=== PATIENT | female | born 1945 | race Caucasian/White ===

== ENCOUNTER 2017-11-18 10:56 | Observation (INO) | payer OTHER ==
[2017-11-18] MEDS ORDERED: IPRATROPIUM BROM 0.5MG/2.5ML ONE (11:18)
[2017-11-18] MEDS ORDERED: ALBUTEROL 2.5 MG/3 ML NEB SOL ONE (11:18)
[2017-11-18 11:48] LABS: Absolute Lymphocytes (CBC) 1.1 K/uL (0.7-4.9); Absolute Monocytes 0.5 K/uL (0.1-1.3); Absolute Neutrophil 6.2 K/uL (1.8-8.0); Basophils % 0.4 % (0-1.3); Eosinophils % 0.9 % (0-4.4); Hematocrit 40.5 % (36.0-45.0); Lymphocytes % 14.2 % (15.3-44.8); MCH 28.6 pg (27.0-35.0); MCV 86.6 fL (80-100); MPV 8.9 fL (7.6-11.3); Monocytes % 6.2 % (3.3-12.3); Protime INR 1.15; RBC Red Blood Cell Count 4.68 M/uL (3.86-4.86)
[2017-11-18 11:56] LABS: Potassium 3.5 mEq/L (3.6-5.0)
[2017-11-18 12:02] LABS: Albumin 3.9 g/dL (3.2-5.5); Bilirubin Direct 0.1 mg/dL (0-0.2); Bilirubin Total 0.3 mg/dL (0.3-1.2); Protein, Total 7.4 g/dL (6.0-8.3)
[2017-11-18 12:04] LABS: CKMB Creatine Kinase MB 2.6 ng/ml (0.3-4.0)
--- NOTE | 2017-11-18 12:06 | RAD REPORT ---
EXAM DESCRIPTION: RAD - Chest Single View - 11/18/2017 11:50 am CLINICAL HISTORY: Chest pain, shortness of breath COMPARISON: 07/21/2017 FINDINGS: Portable technique limits examination quality. The lungs are grossly clear. The heart is mildly prominent size. No displaced fractures. IMPRESSION: No acute intrathoracic process suspected.
[2017-11-18] MEDS ORDERED: METHYLPREDNISOLONE 125 MG INJ ONE (12:18)
[2017-11-18] MEDS ORDERED: MAGNESIUM SULFATE 1 gm IVPB 1 GM/100 ML BAG IV ONE (12:18)
--- NOTE | 2017-11-18 12:55 | EKG ---
Test Date: 2017-11-18 Test Time: 12:02:13 Dynamite Cartridge Crimper: DAIJA MEASUREMENT RESULTS: Intervals: Rate: 52 MI: 198 QRSD: 96 QT: 508 QTc: 472 [place]: P: 81 MI: 198 QRS: 49 T: 114 INTERPRETIVE STATEMENTS: Sinus bradycardia Nonspecific ST and T wave abnormality Prolonged QT Abnormal ECG Compared to ECG 01/07/2017 06:58:58 Prolonged QT interval now present Atrial fibrillation no longer present Ventricular premature complex(es) no longer present Possible ischemia no longer present ST (T wave) deviation still present Electronically Signed On 11-18-17 12:54:29 CDT by Adam Bourgeois
--- NOTE | 2017-11-18 14:27 | EDPHYS ---
Physician Documentation [facility] Name: Malina Hernandez Age: 72 yrs Sex: Female : 1945 Arrival Date: 11/18/2017 Time: 10:56 Bed 23 Private MD: ED Physician Dwayne Gifford HPI: 11/18 11:25 This 72 yrs old Female presents to ER via Ambulatory with complaints of cp Shortness Of Breath. 11:25 The patient has shortness of breath with light activity. Onset: The symptoms/episode cp began/occurred 1 week(s) ago. Duration: The symptoms are continuous, and are steadily getting worse. Historical: - Allergies: 11:00 No Known Allergies; hb - Home Meds: 11:00 amiodarone 200 mg Oral tab 1 tab once daily [Active]; amlodipine 2.5 mg tab 1 tab once hb daily [Active]; carvedilol 12.5 mg Oral tab 1 tab 2 times per day [Active]; Eliquis 2.5 mg Oral tab 1 tab 2 times per day [Active]; furosemide 40 mg Oral tab 1 tab once daily [Active]; levothyroxine 25 mcg tab 1 tab once daily [Active]; valsartan 160 mg Oral tab 1 tab 2 times per day [Active]; - PMHx: 11:00 Atrial Fib; Hypertension; hb - Immunization history:: Adult Immunizations up to date. - Social history:: Smoking status: Patient/guardian denies using tobacco. ROS: 11:30 Constitutional: Negative for body aches, chills, fever, poor PO intake. cp 11:30 Eyes: Negative for injury, pain, redness, and discharge. cp 11:30 ENT: Negative for drainage from ear(s), ear pain, sore throat, difficulty swallowing, difficulty handling secretions. 11:30 Cardiovascular: Positive for edema, Negative for chest pain, palpitations. 11:30 Respiratory: Positive for cough, dyspnea on exertion, shortness of breath, at rest. 11:30 Abdomen/GI: Negative for abdominal pain, nausea, vomiting, and diarrhea, constipation, black/tarry stool, rectal bleeding. 11:30 Back: Negative for pain at rest, pain with movement, radiated pain. 11:30 : Negative for urinary symptoms. 11:30 Skin: Negative for cellulitis, rash. 11:30 Neuro: Negative for altered mental status, headache, syncope, near syncope, weakness. 11:30 All other systems are negative. Exam: 11:37 Constitutional: The patient appears in no acute distress, alert, awake, cp non-diaphoretic, non-toxic, well developed, well nourished. 11:37 Head/Face: Normocephalic, atraumatic. Eyes: Pupils equal round and reactive to light, cp extra-ocular motions intact. Lids and lashes normal. Conjunctiva and sclera are non-icteric and not injected. Cornea within normal limits. Periorbital areas with no swelling, redness, or edema. ENT: Nares patent. No nasal discharge, no septal abnormalities noted. Tympanic membranes are normal and external auditory canals are clear. Oropharynx with no redness, swelling, or masses, exudates, or evidence of obstruction, uvula midline. Mucous membranes moist. Neck: Trachea midline, no thyromegaly or masses palpated, and no cervical lymphadenopathy. Supple, full range of motion without nuchal rigidity, or vertebral point tenderness. No Meningismus. Chest/axilla: Normal chest wall appearance and motion. Nontender with no deformity. No lesions are appreciated. 11:37 Cardiovascular: Rate: normal, Rhythm: regular, Pulses: Pulses are 2+ in right radial artery and left radial artery. Edema: pedal edema, that is moderate, JVD: is not appreciated. 11:37 Respiratory: the patient does not display signs of respiratory distress, Respirations: labored breathing, that is mild, intercostal retractions, are absent, shallow respirations, that is mild, splinting, is not noted, Breath sounds: bronchial sounds, are not appreciated, decreased breath sounds, that are moderate, throughout, stridor, is not appreciated, wheezing: that is mild, is heard diffusely. 11:37 Abdomen/GI: Inspection: abdomen appears normal, Bowel sounds: active, all quadrants, Palpation: abdomen is soft and non-tender, in all quadrants, rebound tenderness, is not appreciated, voluntary guarding, is not appreciated, involuntary guarding, is not appreciated. 11:37 Back: pain, is absent, ROM is normal. 11:37 Skin: cellulitis, is not appreciated, no rash present. 11:37 Neuro: Orientation: to person, place \T\ time. Mentation: lucid, able to follow commands, Cerebellar function: is grossly normal, Motor: moves all fours, strength is normal, Sensation: no obvious gross deficits, Gait: is steady. 12:08 ECG was reviewed by the Attending Physician. Vital Signs: 10:59 BP 148 / 88; Pulse 64; Resp 22; Temp 97.9; Pulse Ox 96% on R/A; Weight 95.25 kg; Height hb 5 ft. 4 in. (162.56 cm); Pain 0/10; 12:12 BP 180 / 86; Pulse 51; Resp 22; Pulse Ox 100% on R/A; aj1 13:43 BP 186 / 99; Pulse 51; Resp 18; Pulse Ox 95% on R/A; aj1 14:56 BP 150 / 81; Pulse 62; Resp 18; Pulse Ox 96% on R/A; aj1 16:45 BP 162 / 87; Pulse 53; Resp 18; Pulse Ox 97% on R/A; aj1 10:59 Body Mass Index 36.05 (95.25 kg, 162.56 cm) hb MDM: 11:06 Patient medically screened. 14:00 Data reviewed: vital signs, nurses notes, lab test result(s), EKG, radiologic studies, cp plain films. 14:00 Test interpretation: by ED physician or midlevel provider: ECG, plain radiologic cp studies. 14:02 Physician consultation: Kathrine Serrato MD was called at 14:02, was contacted at 14:02, regarding admission, to the telemetry unit. patient's condition. 11/18 11:22 Order name: Basic Metabolic Panel; Complete Time: 12:07 11/18 12:07 Interpretation: Normal except: K 3.5; BUN 22; GFR 80. 11/18 11:22 Order name: BNP; Complete Time: 12:07 11/18 12:08 Interpretation: Abnormal: BNP 326. 11/18 11:22 Order name: CBC with Diff; Complete Time: 11:55 11/18 11:55 Interpretation: Normal except: RDW 15.3; OZZIE% 78.3; LYM% 14.2. 11/18 11:22 Order name: Ckmb; Complete Time: 12:07 11/18 11:22 Order name: CPK; Complete Time: 12:07 11/18 11:22 Order name: LFT's; Complete Time: 12:07 cp 11/18 11:22 Order name: Magnesium; Complete Time: 12:07 cp 11/18 11:22 Order name: PT-INR; Complete Time: 11:55 cp 11/18 12:45 Interpretation: Normal except: PT 13.6. cp 11/18 11:22 Order name: Ptt, Activated; Complete Time: 11:55 cp 11/18 11:22 Order name: Troponin (emerg Dept Use Only); Complete Time: 12:07 cp 11/18 14:53 Order name: Urine Dipstick--Ancillary (enter results) bd 11/18 15:10 Order name: Lipid Profile [facility] 11/18 15:10 Order name: Lipid Profile [facility] 11/18 15:10 Order name: Troponin I [facility] 11/18 11:22 Order name: XRAY Chest (1 view); Complete Time: 12:07 cp 11/18 11:22 Order name: EKG; Complete Time: 11:22 cp 11/18 11:22 Order name: Cardiac monitoring; Complete Time: 11:35 cp 11/18 11:22 Order name: EKG - Nurse/Tech; Complete Time: 12:02 cp 11/18 11:22 Order name: IV Saline Lock; Complete Time: 11:35 cp 11/18 11:22 Order name: Labs collected and sent; Complete Time: 11:36 cp 11/18 15:10 Order name: Respiratory Therapy Consult [facility] 11/18 15:10 Order name: Troponin I [facility] 11/18 15:10 Order name: Troponin I [facility] 11/18 15:11 Order name: Regular [facility] 11/18 11:22 Order name: O2 Per Protocol; Complete Time: 11:36 cp 11/18 11:22 Order name: O2 Sat Monitoring; Complete Time: 11:36 cp 11/18 11:22 Order name: Urine Dipstick-Ancillary (obtain specimen); Complete Time: 14:50 cp EC:08 Rate is 52 beats/min. Rhythm is regular. MD interval is normal. QRS interval is normal. cp QT interval is prolonged at 508 msec. Interpreted by me. Reviewed by me. Administered Medications: 11:25 Drug: Albuterol - atroVENT (3:1) (2.5 mg - 0.5 mg) 3 ml Route: Nebulizer; aj1 12:31 Follow up: Response: No adverse reaction aj 12:31 Drug: SOLU-Medrol 125 mg Route: IVP; Site: left antecubital; aj1 14:55 Follow up: Response: No adverse reaction 12:31 Drug: Magnesium Sulfate 1 grams Route: IVPB; Infused Over: 1 hrs; Site: left aj1 antecubital; 14:55 Follow up: IV Status: Completed infusion; IV Intake: 100ml 14:55 Drug: Aspirin 81 mg Route: PO; aj1 16:46 Follow up: Response: No adverse reaction 14:55 Drug: Potassium Effervescent Tablet 25 mEq Route: PO; aj1 16:48 Follow up: Response: No adverse reaction aj 16:48 Not Given (Hemodynamic Parameters): hydrALAZINE 5 mg IV at calculated rate once aj1 Disposition: 11/18/17 14:27 Hospitalization ordered by Kathrine Serrato for Observation. Preliminary diagnosis is Dyspnea, unspecified. - Bed requested for Telemetry/MedSurg (observation). - Status is Observation. aj1 - Condition is Stable. - Problem is new. - Symptoms have improved. UTI on Admission? No Addendum: 12/03/2017 19:46 Co-signature as Attending Physician, Dwayne Gifford MD I agree with the assessment and k plan of care. Signatures: Dispatcher [employer] EDMS Esly Ugarte Angela, WEN RN aj1 Dwayne Gifford MD MD [facility] James Newton PA PA cp Jamaica Lopez RN RN Corrections: (The following items were deleted from the chart) 11/18 15:29 14:27 Hospitalization Ordered by Kathrine Serrato MD for Observation. Preliminary bd diagnosis is Dyspnea, unspecified. Bed requested for Telemetry/MedSurg (observation). Status is Observation. Condition is Stable. Problem is new. Symptoms have improved. UTI on Admission? No. cp 16:49 15:29 11/18/2017 14:27 Hospitalization Ordered by Kathrine Serrato MD for Observation. aj1 Preliminary diagnosis is Dyspnea, unspecified. Bed requested for Telemetry/MedSurg (observation). Status is Observation. Condition is Stable. Problem is new. Symptoms have improved. UTI on Admission? No. bd
--- NOTE | 2017-11-18 14:27 | ER ---
Nurse's Notes [facility] Name: Malina Hernandez Age: 72 yrs Sex: Female : 1945 Arrival Date: 11/18/2017 Time: 10:56 Bed 23 Private MD: Diagnosis: Dyspnea, unspecified Presentation: 11/18 10:57 Presenting complaint: Patient states: Shortness of breath, chest tightness, and hb productive cough with white sputum x 1 week. Recently seen by Dr. Serrato for same s/s on prednisone and amoxicillin Day 4. Transition of care: patient was not received from another setting of care. Onset of symptoms is unknown. Initial Sepsis Screen: Does the patient meet any 2 criteria? No. Patient's initial sepsis screen is negative. Does the patient have a suspected source of infection? No. Patient's initial sepsis screen is negative. Care prior to arrival: None. 10:57 Method Of Arrival: Ambulatory hb 10:57 Acuity: CARMEN 3 hb Historical: - Allergies: 11:00 No Known Allergies; hb - Home Meds: 11:00 amiodarone 200 mg Oral tab 1 tab once daily [Active]; amlodipine 2.5 mg tab 1 tab once hb daily [Active]; carvedilol 12.5 mg Oral tab 1 tab 2 times per day [Active]; Eliquis 2.5 mg Oral tab 1 tab 2 times per day [Active]; furosemide 40 mg Oral tab 1 tab once daily [Active]; levothyroxine 25 mcg tab 1 tab once daily [Active]; valsartan 160 mg Oral tab 1 tab 2 times per day [Active]; - PMHx: 11:00 Atrial Fib; Hypertension; hb - Immunization history:: Adult Immunizations up to date. - Social history:: Smoking status: Patient/guardian denies using tobacco. Screenin:00 Abuse screen: Denies threats or abuse. Denies injuries from another. Nutritional aj1 screening: No deficits noted. Tuberculosis screening: No symptoms or risk factors identified. 16:45 Fall Risk No fall in past 12 months (0 pts). No secondary diagnosis (0 pts). IV access aj1 (20 points). Ambulatory Aid- None/Bed Rest/Nurse Assist (0 pts). Gait- Normal/Bed Rest/Wheelchair (0 pts) Mental Status- Oriented to own ability (0 pts). Total Cabrales Fall Scale indicates No Risk (0-24 pts). Assessment: 11:00 General: Appears in no apparent distress. uncomfortable, Behavior is calm, cooperative, aj1 appropriate for age. Pain: Denies pain. Pain does not radiate. Pain began denies pain. Neuro: Level of Consciousness is awake, alert, obeys commands, Oriented to person, place, time, situation, Speech is normal, Facial symmetry appears normal. Cardiovascular: Reports shortness of breath, Denies chest pain, diaphoresis, Heart tones S1 S2 present Patient's skin is warm and dry. Edema is 3+ to left ankle, left foot, left toes, right ankle, right foot and right toes Rhythm is irregular Chest pain is denied. Respiratory: Reports shortness of breath at rest cough that is non-productive, hacking, persistent Airway is patent Respiratory effort is even, unlabored, Respiratory pattern is regular, symmetrical, Breath sounds with crackles bilaterally. Breath sounds with wheezes bilaterally. the patient has mild shortness of breath. GI: No signs and/or symptoms were reported involving the gastrointestinal system. : No signs and/or symptoms were reported regarding the genitourinary system. EENT: No signs and/or symptoms were reported regarding the EENT system. Derm: No signs and/or symptoms reported regarding the dermatologic system. Skin is pink, warm \T\ dry. normal. Musculoskeletal: No signs and/or symptoms reported regarding the musculoskeletal system. Circulation, motion, and sensation intact. 12:12 Reassessment: Patient appears in no apparent distress at this time. No changes from aj1 previously documented assessment. Patient and/or family updated on plan of care and expected duration. Pain level reassessed. Patient is alert, oriented x 3, equal unlabored respirations, skin warm/dry/pink. 13:43 Reassessment: Patient appears in no apparent distress at this time. No changes from aj1 previously documented assessment. Patient and/or family updated on plan of care and expected duration. Pain level reassessed. Patient is alert, oriented x 3, equal unlabored respirations, skin warm/dry/pink. 14:56 Reassessment: Patient appears in no apparent distress at this time. No changes from aj1 previously documented assessment. Patient and/or family updated on plan of care and expected duration. Pain level reassessed. Patient is alert, oriented x 3, equal unlabored respirations, skin warm/dry/pink. 15:00 Reassessment: Rechecked patients blood pressure now 157/73. Notified GIGI Anguiano of aj1 patient's current vital signs, order received to hold hydralazine and give if BP rises back to 180's/90's. 15:45 Reassessment: Patient and/or family updated on plan of care and expected duration. Pain aj1 level reassessed. General: Appears in no apparent distress. comfortable, Behavior is calm, cooperative, appropriate for age. Pain: Denies pain. Neuro: Level of Consciousness is awake, alert, obeys commands, Oriented to person, place, time, situation, Speech is normal, Facial symmetry appears normal. Cardiovascular: Heart tones S1 S2 present Patient's skin is warm and dry. Edema is 3+ to left ankle, left foot, left toes, right ankle, right foot and right toes Rhythm is sinus bradycardia. Respiratory: Airway is patent Respiratory effort is even, unlabored, Respiratory pattern is regular, symmetrical, Breath sounds with wheezes bilaterally. GI: No signs and/or symptoms were reported involving the gastrointestinal system. : No signs and/or symptoms were reported regarding the genitourinary system. EENT: No signs and/or symptoms were reported regarding the EENT system. Derm: No signs and/or symptoms reported regarding the dermatologic system. Skin is pink, warm \T\ dry. normal. Musculoskeletal: No signs and/or symptoms reported regarding the musculoskeletal system. Circulation, motion, and sensation intact. 16:43 Reassessment: Patient appears in no apparent distress at this time. No changes from aj1 previously documented assessment. Patient and/or family updated on plan of care and expected duration. Pain level reassessed. Patient is alert, oriented x 3, equal unlabored respirations, skin warm/dry/pink. Vital Signs: 10:59 BP 148 / 88; Pulse 64; Resp 22; Temp 97.9; Pulse Ox 96% on R/A; Weight 95.25 kg; Height hb 5 ft. 4 in. (162.56 cm); Pain 0/10; 12:12 BP 180 / 86; Pulse 51; Resp 22; Pulse Ox 100% on R/A; aj1 13:43 BP 186 / 99; Pulse 51; Resp 18; Pulse Ox 95% on R/A; aj1 14:56 BP 150 / 81; Pulse 62; Resp 18; Pulse Ox 96% on R/A; aj1 16:45 BP 162 / 87; Pulse 53; Resp 18; Pulse Ox 97% on R/A; aj1 10:59 Body Mass Index 36.05 (95.25 kg, 162.56 cm) hb ED Course: 10:56 Patient arrived in ED. sb2 10:59 Triage completed. hb 10:59 Arm band placed on right wrist. hb 11:00 Patient has correct armband on for positive identification. Placed in gown. Bed in low aj1 position. Call light in reach. Side rails up X 1. lunchroom monitor on. Pulse ox on. NIBP on. Door closed. Warm blanket given. 11:00 No provider procedures requiring assistance completed. Patient maintains SpO2 aj1 saturation greater than 95% on room air. 11:03 Kasia Dash RN is Primary Nurse. aj1 11:04 James Newton PA is PHCP. cp 11:05 Dwayne Gifford MD is Attending Physician. cp 11:30 Initial lab(s) drawn, by nv, sent to lab. Inserted saline lock: 20 gauge in left aj1 antecubital area, using aseptic technique. Blood collected. 11:46 X-ray completed. Portable x-ray completed in exam room. Patient tolerated procedure ml well. 11:49 XRAY Chest (1 view) In Process Unspecified. EDMS 12:06 EKG done, by ED staff, reviewed by Dwayne Gifford MD. jb1 14:25 Kathrine Serrato MD is Hospitalizing Provider. cp 14:49 Urine collected: clean catch specimen, clear, nancy colored. jb1 15:45 Report given to WEN Mars on 4th floor. aj1 16:45 Patient admitted, IV remains in place. aj1 Administered Medications: 11:25 Drug: Albuterol - atroVENT (3:1) (2.5 mg - 0.5 mg) 3 ml Route: Nebulizer; aj1 12:31 Follow up: Response: No adverse reaction aj1 12:31 Drug: SOLU-Medrol 125 mg Route: IVP; Site: left antecubital; aj1 14:55 Follow up: Response: No adverse reaction aj1 12:31 Drug: Magnesium Sulfate 1 grams Route: IVPB; Infused Over: 1 hrs; Site: left aj1 antecubital; 14:55 Follow up: IV Status: Completed infusion; IV Intake: 100ml aj1 14:55 Drug: Aspirin 81 mg Route: PO; aj1 16:46 Follow up: Response: No adverse reaction aj1 14:55 Drug: Potassium Effervescent Tablet 25 mEq Route: PO; aj1 16:48 Follow up: Response: No adverse reaction aj1 16:48 Not Given (Hemodynamic Parameters): hydrALAZINE 5 mg IV at calculated rate once aj1 Intake: 14:55 IV: 100ml; Total: 100ml. aj1 Outcome: 14:27 Decision to Hospitalize by Provider. cp 16:46 Admitted to Tele accompanied by tech, via wheelchair, with chart. aj1 16:46 Condition: stable 16:46 Discharge instructions given to patient, Instructed on the need for admit, Demonstrated understanding of instructions. 16:49 Patient left the ED. aj1 Signatures: Dispatcher [employer] EDRik Martines jb1 Kasia Dash RN RN aj1 Georgie Askew ml James Newton, GIGI PA cp Jamaica Lopez RN RN hb Keyla Edwards sb2 Corrections: (The following items were deleted from the chart) 11:04 10:57 Presenting complaint: Patient states: Shortness of breath, chest tightness, and hb nonproductive cough x 1 week. Recently seen by Dr. Serrato for same s/s on prednisone and amoxicillin Day 4 hb
[2017-11-18] MEDS ORDERED: ASPIRIN 81 MG CHEWABLE TABLET ONE (14:37)
[2017-11-18] MEDS ORDERED: HYDRALAZINE HCL 20 MG/ML VIAL ONE (14:37)
[2017-11-18] MEDS ORDERED: POTASSIUM 25 MEQ EFFERV TAB ONE (14:38)
[2017-11-18] MEDS ORDERED: ONDANSETRON 4 MG/2 ML VIAL IV PRN (15:05)
[2017-11-18 16:41] LABS: Urine Blood NEGATIVE (NEG); Urine Glucose NEGATIVE (NEG); Urine Protein 1+ (NEG); Urine pH 5.5 (5.0-7.0)
[2017-11-18] MEDS: ALBUTEROL 2.5 MG/3 ML NEB SOL NEB SCH ×2 (17:05→20:07)
[2017-11-18] MEDS: IPRATROPIUM BROM 0.5MG/2.5ML NEB SCH ×2 (17:05→20:07)
[2017-11-18] MEDS ORDERED: cloNIDine HCl 0.1 MG TAB PO ONE (17:55)
[2017-11-18] MEDS: METHYLPREDNISOLONE 40 MG INJ IV SCH ×2 (18:06→23:51)
[2017-11-18] MEDS ORDERED: PNEUMOCOCCAL VACCINE 0.5 ML IMVAC ONE (20:00)
[2017-11-18] MEDS: APIXABAN 2.5 MG TABLET PO SCH (21:00)
[2017-11-18] MEDS ORDERED: APIXABAN 2.5 MG TABLET PO SCH (21:00)
[2017-11-18] MEDS: VALSARTAN 160 MG TAB PO SCH (21:14)
[2017-11-18] MEDS: CARVEDILOL 6.25 MG TAB PO SCH (21:14)
[2017-11-19] MEDS: IPRATROPIUM BROM 0.5MG/2.5ML NEB SCH ×5 (00:14→16:25)
[2017-11-19] MEDS: ALBUTEROL 2.5 MG/3 ML NEB SOL NEB SCH ×5 (00:14→16:25)
[2017-11-19] MEDS: METHYLPREDNISOLONE 40 MG INJ IV SCH ×3 (05:54→18:00)
[2017-11-19] MEDS ORDERED: LEVOTHYROXINE SOD 0.025 MG TAB PO SCH (06:00)
[2017-11-19] MEDS: APIXABAN 2.5 MG TABLET PO SCH (08:23)
[2017-11-19] MEDS: VALSARTAN 160 MG TAB PO SCH (08:23)
[2017-11-19] MEDS: CARVEDILOL 6.25 MG TAB PO SCH (08:24)
[2017-11-19] MEDS ORDERED: AMLODIPINE 2.5 MG TAB PO SCH (09:00)
[2017-11-19] MEDS ORDERED: ASPIRIN EC 81 MG TAB PO SCH (09:00)
[2017-11-19] MEDS ORDERED: AMIODARONE HCL 200 MG TAB PO SCH (09:00)
[2017-11-19] MEDS ORDERED: FUROSEMIDE 40 MG TABLET PO SCH (09:00)
--- NOTE | 2017-11-20 00:20 | HP ---
Date of Admission: 11/18/2017 History Of Present Illness: A 72-year-old female with a history of paroxysmal atrial fibrillation, o n medications for that. Came to emergency room with a complaint that she was at home and she started feeling a little bit short of breath, fatigued. However, by the time she got to the emergency room. A feeling of shortness of breath and fatigue has resolved and because of the patient's history of a trial fibrillation and other medical problems, she was admitted for observation. Review of Systems: Cardiovascular: No chest pain. She did not feel palpitation. Respiratory: As above. Gastrointestinal: No complaint. Genitourinary: No complaint. Skeletomuscular: No complaint. Neurological: No complaint. Past Medical History: 1.As above, paroxysmal atrial fibrillation. 2.Hypertension. 3.The patient has had cholecystectomy. 4.The patient had history of noncompliance in the past with medications. Social History: The patient said she stopped smoking years ago. No alcohol or drug abuse history. Family History: Noncontributory. Medications: Include Cordarone 200 mg p.o. daily, amlodipine 2.5 mg p.o. daily, Eliquis 2.5 mg p.o. b.i.d., Coreg 12.5 mg p.o. b.i.d., Lasix 40 mg p.o. daily, levothyroxine 25 mcg p.o. daily, and valsa rtan 160 mg p.o. b.i.d. Allergies: NO KNOWN DRUG ALLERGIES. Physical Examination: Vital Signs: On presenting to the emergency room, her pulse oximetry on room air was more than 90%. Now, her blood pressure 147/85, pulse 54, temperature 97.8. Heart: Regular rate and rhythm. Chest: Clear to auscultation. Abdomen: Soft, nontender. No hepatosplenomegaly. Bowel sounds are normoactive. Extremities: No edema. No cyanosis. Peripheral pulses are felt. Neurological: Alert, oriented, nonfocal. Grossly intact. Diagnostic Studies: Chest x-ray, no acute pathology. EKG, sinus bradycardia, nonspecific ST-T wave abnormality, prolonged QT. Laboratory Data: CBC: Nonrevealing. Chemistry: Troponin less than 0.03. TSH 1.94. Rest of her c hemistry nonrevealing. Her BNP was 326. Urinalysis: Estrace and nitrite negative. Assessment And Plan: Complaint of shortness of breath and fatigue, resolved. It was for a short per iod of time. The patient felt that not even amounting to an hour. However, because of history of at rial fibrillation and she had been a previous smoker, she was admitted for observation. Also, her bl ood pressure was very high and was uncontrolled. We will go ahead and resume her home medicines, whi ch seem to have worked well. Her blood pressure is now better controlled and also we will order a ca rdiac echo. Meanwhile, the patient mentioned today she is ambulating well. I have asked her to ambu late as tolerated, and if her cardiac echo is unrevealing, and if she is feeling well, and remained s table, we will discharge in a.m. Look orders for details. CADEN/MATT Voice ID: [id number]
== END 2017-11-19 18:26 | disposition home or self-care (01) ==
LOC: ER 10:56 → ERHOLD 14:58 → 4TH 16:27
PROVIDERS: ADMIT Internal Medicine; ATTEND Internal Medicine
DX: R06.02 Shortness of breath (principal); R53.83 Other fatigue; I48.0 Paroxysmal atrial fibrillation; I10 Essential (primary) hypertension; Z87.891 Personal history of nicotine dependence
CPT/HCPCS: 36415; 71045; 80048; 80061; 80076; 81003; 82550; 82553; 83735; 83880; 84443; 84484 ×3; 85025; 85610; 85730; 93005; 94640 ×2; 96365; 96366; 96375; 99285; G0378 ×2; J0360; J2920 ×4; J2930; J3475

== ENCOUNTER 2018-06-12 06:45 | Emergency (ER) | payer OTHER ==
[2018-06-12] MEDS ORDERED: MORPHINE 4 MG/ML SYR ONE (07:41)
[2018-06-12] MEDS ORDERED: ONDANSETRON 4 MG/2 ML VIAL ONE (07:41)
[2018-06-12] MEDS ORDERED: FUROSEMIDE 40 MG TABLET ONE (07:56)
[2018-06-12] MEDS ORDERED: AMLODIPINE 5 MG TAB ONE (07:56)
--- NOTE | 2018-06-12 08:07 | RAD REPORT ---
EXAM DESCRIPTION: RAD - Chest Pa And Lat (2 Views) - 06/12/2018 7:43 am CLINICAL HISTORY: Left-sided back pain, rib pain COMPARISON: Portable chest October 2017, two view chest July 2017 TECHNIQUE: PA and lateral views of the chest were obtained. FINDINGS: The lungs are clear of an acute infiltrate, mass or failure finding. Mild prominence of th e lung markings in each medial base similar back to July 2017. Overall interstitial pattern not c learly different. Heart size is normal and central vasculature is within normal limits. No pleural effusion or pneumothorax seen. No acute bony finding noted. No aortic abnormality. IMPRESSION: No acute cardiopulmonary process. No significant change from comparison study.
[2018-06-12 08:13] LABS: Absolute Lymphocytes (CBC) 0.9 K/uL (0.7-4.9); Absolute Monocytes 0.4 K/uL (0.1-1.3); Absolute Neutrophil 5.7 K/uL (1.8-8.0); Basophils % 0.5 % (0-1.3); Eosinophils % 0.9 % (0-4.4); Hematocrit 42.2 % (36.0-45.0); Lymphocytes % 12.1 % (15.3-44.8); MCH 30.5 pg (27.0-35.0); MCV 87.4 fL (80-100); MPV 9.9 fL (7.6-11.3); Monocytes % 5.4 % (3.3-12.3); RBC Red Blood Cell Count 4.83 M/uL (3.86-4.86)
[2018-06-12 08:23] LABS: BUN Blood Urea Nitrogen 15 mg/dL (7-18); Bicarbonate 27 mmol/L (21-32); Glucose Level 120 mg/dL (74-106); Potassium 4.2 mmol/L (3.5-5.1); Sodium Level 141 mmol/L (136-145); Troponin (Emerg Dept Use Only) < 0.02 ng/mL (0.0-0.045)
--- NOTE | 2018-06-12 08:40 | EKG ---
Test Date: 2018-06-12 Test Time: 07:09:40 Vinyl Flooring Installer: ELGIN MEASUREMENT RESULTS: Intervals: Rate: 65 MI: 196 QRSD: 98 QT: 466 QTc: 484 [place]: P: 59 MI: 196 QRS: 62 T: 91 INTERPRETIVE STATEMENTS: Normal sinus rhythm Nonspecific ST and T wave abnormality Abnormal ECG Compared to ECG 11/18/2017 12:02:13 Sinus bradycardia no longer present Prolonged QT interval no longer present ST (T wave) deviation still present Electronically Signed On 06-12-18 08:39:25 MANAGER BABY by Adam Bourgeois
--- NOTE | 2018-06-12 08:44 | EDPHYS ---
Physician Documentation [facility] Name: Malina Hernandez Age: 72 yrs Sex: Female : 1945 Arrival Date: 06/12/2018 Time: 06:47 Bed 5 Private MD: Kathrine Serrato F ED Physician Rikki Mcdonald HPI: 06/12 07:20 This 72 yrs old Female presents to ER via Ambulatory with complaints of Back kb Pain. 07:20 The patient presents with pain that is acute, with no known mechanism of injury, and kb spasm, and tenderness. The symptoms are located in the left subscapular area and left mid back. Onset: The symptoms/episode began/occurred 5 day(s) ago. The pain radiates to the left lower anterior chest, ribs. Associated signs and symptoms: The patient has no apparent associated signs or symptoms. The problem was sustained without known cause. Modifying factors: The patient symptoms are alleviated by nothing, the patient symptoms are aggravated by any movement, palpation. Severity of symptoms: At their worst the symptoms were moderate, in the emergency department the symptoms are unchanged. The patient has not experienced similar symptoms in the past. The patient has not recently seen a physician. Pt reports she developed left mid back pain on evening. Denies trauma or any activity out of the ordinary, went to water aerobics and cleaned house that day. Pain has been worse over the last 2 nights and is radiating around to LUQ/left lower anterior chest now. Pt reports muscle spasms in back. . Historical: - Allergies: 07:09 Prednisone; aa1 - Home Meds: 07:09 Eliquis 2.5 mg Oral tab 1 tab 2 times per day [Active]; carvedilol 12.5 mg Oral tab 1 aa1 tab 2 times per day [Active]; irbesartan 300 mg oral tab 1 tab once daily [Active]; amiodarone 200 mg Oral tab 1 tab once daily [Active]; amlodipine 5 mg oral tab 1 tab once daily [Active]; levothyroxine 50 mcg oral tab 1 tab once daily [Active]; furosemide 40 mg Oral tab 1 tab once daily [Active]; Vitamin D Oral [Active]; - PMHx: 07:09 Atrial Fib; Hypertension; COPD; Hypothyroidism; aa1 - PSHx: 07:09 Cholecystectomy; aa1 - Immunization history:: Flu vaccine is not up to date. - Social history:: Smoking status: Patient/guardian denies using tobacco. - Ebola Screening: : Patient denies exposure to infectious person Patient denies travel to an Ebola-affected area in the 21 days before illness onset. ROS: 07:20 Constitutional: Negative for fever, chills, and weight loss, ENT: Negative for injury, kb pain, and discharge, Neck: Negative for injury, pain, and swelling, Cardiovascular: Negative for chest pain, palpitations, and edema, Respiratory: Negative for shortness of breath, cough, wheezing, and pleuritic chest pain, Abdomen/GI: Negative for abdominal pain, nausea, vomiting, diarrhea, and constipation, MS/Extremity: Negative for injury and deformity, Skin: Negative for injury, rash, and discoloration, Neuro: Negative for headache, weakness, numbness, tingling, and seizure. 07:20 Back: Positive for pain at rest, pain with movement, of the left subscapular area and left mid back. Exam: 07:20 Constitutional: This is a well developed, well nourished patient who is awake, alert, kb and in no acute distress. Head/Face: Normocephalic, atraumatic. Cardiovascular: Regular rate and rhythm with a normal S1 and S2. No gallops, murmurs, or rubs. Normal PMI, no JVD. No pulse deficits. Respiratory: Lungs have equal breath sounds bilaterally, clear to auscultation and percussion. No rales, rhonchi or wheezes noted. No increased work of breathing, no retractions or nasal flaring. Abdomen/GI: Soft, non-tender, with normal bowel sounds. No distension or tympany. No guarding or rebound. No evidence of tenderness throughout. MS/ Extremity: Pulses equal, no cyanosis. Neurovascular intact. Full, normal range of motion. Neuro: Awake and alert, GCS 15, oriented to person, place, time, and situation. Cranial nerves II-XII grossly intact. Motor strength 5/5 in all extremities. Sensory grossly intact. Cerebellar exam normal. Normal gait. 07:20 Chest/axilla: Palpation: tenderness, that is moderate, of the left lower chest, that totally reproduces the patient's complaints. 07:20 Back: pain, that is moderate, of the left subscapular area and left mid back, ROM is normal. 08:38 Skin: injury, contusion(s), that are superficial, of the left mid back. kb Vital Signs: 07:09 BP 170 / 100; Pulse 72; Resp 18; Temp 97.8; Pulse Ox 97% on R/A; Weight 95.25 kg; aa1 Height 5 ft. 4 in. (162.56 cm); 08:00 BP 190 / 80; Pulse 57; Resp 16; Pulse Ox 99% ; bp 07:09 Body Mass Index 36.05 (95.25 kg, 162.56 cm) aa1 MDM: 06:50 Patient medically screened. kb 07:25 Data reviewed: vital signs, nurses notes. Data interpreted: Pulse oximetry: on room air kb is 97 %. Interpretation: normal. 08:42 Counseling: I had a detailed discussion with the patient and/or guardian regarding: the kb historical points, exam findings, and any diagnostic results supporting the discharge/admit diagnosis, lab results, radiology results, the need for outpatient follow up, a family practitioner, to return to the emergency department if symptoms worsen or persist or if there are any questions or concerns that arise at home. 06/12 06:58 Order name: Troponin (emerg Dept Use Only) kb 06/12 06:58 Order name: CBC with Diff; Complete Time: 08:22 kb 06/12 06:58 Order name: Chest Pa And Lat (2 Views) XRAY; Complete Time: 08:11 kb 06/12 06:58 Order name: Basic Metabolic Panel kb 06/12 06:58 Order name: Troponin (Emerg Dept Use Only); Complete Time: 08:25 EDMS 06/12 06:58 Order name: Basic Metabolic Panel; Complete Time: 08:25 EDMS 06/12 06:58 Order name: EKG; Complete Time: 06:58 kb 06/12 06:58 Order name: EKG - Nurse/Tech; Complete Time: 07:16 kb 06/12 06:58 Order name: IV Start; Complete Time: 07:36 kb Administered Medications: 07:37 Drug: morphine 4 mg Route: IVP; Site: right antecubital; hb 08:32 Follow up: Response: Pain is decreased bp 07:37 Drug: Zofran 4 mg Route: IVP; Site: right antecubital; hb 08:32 Follow up: Response: No adverse reaction bp 07:54 Drug: amLODIPine 5 mg Route: PO; bp 08:51 Follow up: Response: No adverse reaction bp 07:54 Drug: Furosemide 40 mg Route: PO; bp 08:50 Follow up: Response: No adverse reaction bp 08:32 Drug: Eliquis 2.5 mg Route: PO; bp 08:52 Follow up: Response: No adverse reaction bp 08:32 Drug: carvedilol 12.5 mg Route: PO; bp 08:52 Follow up: Response: No adverse reaction bp 08:33 Drug: amiodarone 200 mg Route: PO; bp 08:51 Follow up: Response: No adverse reaction bp 08:33 Drug: Irbesartan 300 mg Route: PO; bp 08:51 Follow up: Response: No adverse reaction bp Disposition: 06/13 05:09 Co-signature as Attending Physician, Rikki Mcdonald MD. rn Disposition: 06/12/18 08:43 Discharged to Home. Impression: Contusion of left back wall of thorax, Muscle spasm of back. - Condition is Stable. - Discharge Instructions: Musculoskeletal Pain, Back Pain, Adult, [id number], Muscle Cramps and Spasms, [id number]. - Prescriptions for Cyclobenzaprine 10 mg Oral Tablet - take 1 tablet by ORAL route every 8 hours As needed; 21 tablet. Tramadol 50 mg Oral Tablet - take 1 tablet by ORAL route every 8 hours as needed; 12 tablet. - Medication Reconciliation Form, Thank You Letter, Antibiotic Education, Prescription Opioid Use form. - Follow up: Emergency Department; When: As needed; Reason: Worsening of condition. Follow up: Private Physician; When: 2 - 3 days; Reason: Recheck today's complaints, Continuance of care, Re-evaluation by your physician. Signatures: Dispatcher [employer] EDMS Ramona Barron, YOJANA MOSSP-Fabiana Smyth RN RN aa1 Rikki Mcdonald MD MD rn Baxter, Heather, RN RN hb Peltier, Brian, RN RN bp Corrections: (The following items were deleted from the chart) 06/12 08:38 07:20 Constitutional: This is a well developed, well nourished patient who is awake, kb alert, and in no acute distress. Head/Face: Normocephalic, atraumatic. Cardiovascular: Regular rate and rhythm with a normal S1 and S2. No gallops, murmurs, or rubs. Normal PMI, no JVD. No pulse deficits. Respiratory: Lungs have equal breath sounds bilaterally, clear to auscultation and percussion. No rales, rhonchi or wheezes noted. No increased work of breathing, no retractions or nasal flaring. Abdomen/GI: Soft, non-tender, with normal bowel sounds. No distension or tympany. No guarding or rebound. No evidence of tenderness throughout. Skin: Warm, dry with normal turgor. Normal color with no rashes, no lesions, and no evidence of cellulitis. MS/ Extremity: Pulses equal, no cyanosis. Neurovascular intact. Full, normal range of motion. Neuro: Awake and alert, GCS 15, oriented to person, place, time, and situation. Cranial nerves II-XII grossly intact. Motor strength 5/5 in all extremities. Sensory grossly intact. Cerebellar exam normal. Normal gait. kb 08:55 08:43 06/12/2018 08:43 Discharged to Home. Impression: Contusion of left back wall of bp thorax; Muscle spasm of back. Condition is Stable. Forms are Medication Reconciliation Form, Thank You Letter, Antibiotic Education, Prescription Opioid Use. Follow up: Emergency Department; When: As needed; Reason: Worsening of condition. Follow up: Private Physician; When: 2 - 3 days; Reason: Recheck today's complaints, Continuance of care, Re-evaluation by your physician. kb
--- NOTE | 2018-06-12 08:44 | ER ---
Nurse's Notes [facility] Name: Malina Hernandez Age: 72 yrs Sex: Female : 1945 Arrival Date: 06/12/2018 Time: 06:47 Bed 5 Private MD: Kathrine Serrato F Diagnosis: Contusion of left back wall of thorax;Muscle spasm of back Presentation: 06/12 06:58 Presenting complaint: Patient states: L mid back pain x 5 days and has become worse aa1 over the past 2 days. Denies injury. Transition of care: patient was not received from another setting of care. Onset of symptoms was June 08, 2018. Risk Assessment: Do you want to hurt yourself or someone else? Patient reports no desire to harm self or others. Initial Sepsis Screen: Does the patient meet any 2 criteria? No. Patient's initial sepsis screen is negative. Does the patient have a suspected source of infection? No. Patient's initial sepsis screen is negative. Care prior to arrival: None. 06:58 Method Of Arrival: Ambulatory aa1 06:58 Acuity: CARMEN 3 aa1 Triage Assessment: 07:09 General: Appears in no apparent distress. uncomfortable, Behavior is calm, cooperative, aa1 appropriate for age. Historical: - Allergies: 07:09 Prednisone; aa1 - Home Meds: 07:09 Eliquis 2.5 mg Oral tab 1 tab 2 times per day [Active]; carvedilol 12.5 mg Oral tab 1 aa1 tab 2 times per day [Active]; irbesartan 300 mg oral tab 1 tab once daily [Active]; amiodarone 200 mg Oral tab 1 tab once daily [Active]; amlodipine 5 mg oral tab 1 tab once daily [Active]; levothyroxine 50 mcg oral tab 1 tab once daily [Active]; furosemide 40 mg Oral tab 1 tab once daily [Active]; Vitamin D Oral [Active]; - PMHx: 07:09 Atrial Fib; Hypertension; COPD; Hypothyroidism; aa1 - PSHx: 07:09 Cholecystectomy; aa1 - Immunization history:: Flu vaccine is not up to date. - Social history:: Smoking status: Patient/guardian denies using tobacco. - Ebola Screening: : Patient denies exposure to infectious person Patient denies travel to an Ebola-affected area in the 21 days before illness onset. Screenin:38 Abuse screen: Denies threats or abuse. Denies injuries from another. Nutritional hb screening: No deficits noted. Tuberculosis screening: No symptoms or risk factors identified. Fall Risk None identified. Assessment: 07:00 Reassessment: RECD REPORT FROM LEONORA CARVER. 72YO WF P/W BACK PAIN, CARDIAC HX. ALL bp CURRENT ORDERS IN PROCESS. Pain: Complains of pain in left mid back and left subscapular area Pain does not radiate. Pain began suddenly. Cardiovascular: Rhythm is regular. 07:19 Reassessment: Pt to XRAY at this time VIA wheelchair. ss 07:53 Reassessment: Patient appears in no apparent distress at this time. No changes from hb previously documented assessment. Patient and/or family updated on plan of care and expected duration. Pain level reassessed. Patient is alert, oriented x 3, equal unlabored respirations, skin warm/dry/pink. 08:53 Reassessment: PT D/C HOME AMBULATORY WITH FAMILY, DX WITH MUSCLE SPASM. bp Vital Signs: 07:09 BP 170 / 100; Pulse 72; Resp 18; Temp 97.8; Pulse Ox 97% on R/A; Weight 95.25 kg; aa1 Height 5 ft. 4 in. (162.56 cm); 08:00 BP 190 / 80; Pulse 57; Resp 16; Pulse Ox 99% ; bp 07:09 Body Mass Index 36.05 (95.25 kg, 162.56 cm) aa1 ED Course: 06:47 Patient arrived in ED. am2 06:47 Kathrine Serrato MD is Private Physician. am2 06:50 [facility] kb 06:50 Rikki Mcdonald MD is Attending Physician. kb 07:06 Triage completed. aa1 07:09 Arm band placed on right wrist. aa1 07:15 Mark Pop, WEN is Primary Nurse. bp 07:17 EKG done, by ED staff, reviewed by Ramona DIAL. dh3 07:20 Patient moved to radiology via wheelchair. em2 07:20 Patient has correct armband on for positive identification. Placed in gown. Bed in low hb position. Call light in reach. Side rails up X 1. desk monitor on. Pulse ox on. NIBP on. 07:32 X-ray completed. Patient tolerated procedure well. Patient moved back from radiology. em2 07:35 Initial lab(s) drawn, by me, sent to lab. Inserted saline lock: 20 gauge in right dh3 antecubital area, using aseptic technique. Blood collected. 07:45 Chest Pa And Lat (2 Views) XRAY In Process Unspecified. EDMS 08:54 No provider procedures requiring assistance completed. IV discontinued, intact, bp bleeding controlled, No redness/swelling at site. Pressure dressing applied. Patient maintains SpO2 saturation greater than 95% on room air. Administered Medications: 07:37 Drug: morphine 4 mg Route: IVP; Site: right antecubital; hb 08:32 Follow up: Response: Pain is decreased bp 07:37 Drug: Zofran 4 mg Route: IVP; Site: right antecubital; hb 08:32 Follow up: Response: No adverse reaction bp 07:54 Drug: amLODIPine 5 mg Route: PO; bp 08:51 Follow up: Response: No adverse reaction bp 07:54 Drug: Furosemide 40 mg Route: PO; bp 08:50 Follow up: Response: No adverse reaction bp 08:32 Drug: Eliquis 2.5 mg Route: PO; bp 08:52 Follow up: Response: No adverse reaction bp 08:32 Drug: carvedilol 12.5 mg Route: PO; bp 08:52 Follow up: Response: No adverse reaction bp 08:33 Drug: amiodarone 200 mg Route: PO; bp 08:51 Follow up: Response: No adverse reaction bp 08:33 Drug: Irbesartan 300 mg Route: PO; bp 08:51 Follow up: Response: No adverse reaction bp Outcome: 08:43 Discharge ordered by . kb 08:54 Discharged to home ambulatory, with family. bp 08:54 Condition: stable 08:54 Discharge instructions given to patient, Instructed on discharge instructions, follow up and referral plans. medication usage, Demonstrated understanding of instructions, follow-up care, medications, Prescriptions given X 2. 08:55 Patient left the ED. bp Signatures: Dispatcher [employer] EDMS Ramona Barron, YOJANA HINOJOSA-Leonora Smyth RN RN aa1 Ana Marquez RN RN ss Montes, Enrique em2 Jamaica Lopez RN RN Yin Rivers am2 Latasha Alonso dh3 Mark Pop, RN RN bp
[2018-06-12] MEDS ORDERED: APIXABAN 2.5 MG TABLET PO ONE (09:00)
[2018-06-12] MEDS ORDERED: IRBESARTAN 150 MG TAB PO ONE (09:00)
[2018-06-12] MEDS ORDERED: AMIODARONE HCL 200 MG TAB PO ONE (09:00)
[2018-06-12] MEDS ORDERED: CARVEDILOL 12.5 MG TAB PO ONE (09:00)
== END 2018-06-12 08:55 | disposition home or self-care (01) ==
LOC: ER 06:45
DX: S20.222A Contusion of left back wall of thorax, initial encounter (principal); M62.830 Muscle spasm of back; X58.XXXA Exposure to other specified factors, initial encounter; I48.91 Unspecified atrial fibrillation; I10 Essential (primary) hypertension; E03.9 Hypothyroidism, unspecified; J44.9 Chronic obstructive pulmonary disease, unspecified; Z79.01 Long term (current) use of anticoagulants; Z79.899 Other long term (current) drug therapy
CPT/HCPCS: 36415; 71046; 80048; 84484; 85025; 93005; 96374; 96375; 99285; J2405

== ENCOUNTER 2020-01-22 16:49 | Emergency (ER) | payer OTHER ==
[2020-01-22] MEDS ORDERED: BUPIVACAINE 0.5% PF 10 ML VIAL ONE (19:51)
[2020-01-22] MEDS ORDERED: TETANUS & DIPHTHERIA TOX,ADULT 0.5 ML VIAL ONE (19:51)
--- NOTE | 2020-01-23 10:25 | ER ---
Nurse's Notes [facility] Name: Malina Hernandez Age: 74 yrs Sex: Female : 1945 Arrival Date: 01/22/2020 Time: 16:55 Bed 8 Private MD: Kathrine Serrato F Diagnosis: Finger Laceration Presentation: 01/21 17:22 Chief complaint: Patient states: I cut my finger with a brand new knife. 3rd digit of ca1 the L finger. Takes Eliquis 2x a day. Coronavirus screen: Proceed with normal triage. Patient denies a cough. Patient denies shortness of breath or difficulty breathing. Patient denies measured and/or subjective temperature greater than 100.4F prior to today's visit. Patient denies travel on a cruise ship or to a country the [facility]NOTE 3] currently lists as an affected area. Patient denies contact with known and/or suspected case of COVID-19. Ebola Screen: Patient negative for fever greater than or equal to 101.5 degrees Fahrenheit, and additional compatible Ebola Virus Disease symptoms Patient denies exposure to infectious person. Patient denies travel to an Ebola-affected area in the 21 days before illness onset. No symptoms or risks identified at this time. Initial Sepsis Screen: Does the patient meet any 2 criteria? No. Patient's initial sepsis screen is negative. Does the patient have a suspected source of infection? No. Patient's initial sepsis screen is negative. Risk Assessment: Do you want to hurt yourself or someone else? Patient reports no desire to harm self or others. Onset of symptoms was January 22, 2020. 17:22 Method Of Arrival: Ambulatory ca1 17:22 Acuity: CARMEN 3 ca1 Historical: - Allergies: 17:26 Prednisone; ca1 - PMHx: 17:26 Atrial Fib; COPD; Hypertension; Hypothyroidism; ca1 - PSHx: 17:26 Cholecystectomy; ca1 - Immunization history:: Adult Immunizations up to date, Last tetanus immunization: up to date. - Social history:: Smoking status: Patient/guardian denies using tobacco. Screenin:30 Abuse screen: Denies threats or abuse. Denies injuries from another. Nutritional hb screening: No deficits noted. Tuberculosis screening: No symptoms or risk factors identified. Fall Risk None identified. Assessment: 18:30 General: Appears in no apparent distress. Behavior is calm, cooperative. Pain: Pain hb currently is 3 out of 10 on a pain scale. Neuro: Level of Consciousness is awake, alert, obeys commands, Oriented to person, place, time, situation. Cardiovascular: Capillary refill < 3 seconds Patient's skin is warm and dry. Respiratory: Airway is patent Respiratory effort is even, unlabored, Respiratory pattern is regular, symmetrical. GI: No signs and/or symptoms were reported involving the gastrointestinal system. : No signs and/or symptoms were reported regarding the genitourinary system. EENT: No signs and/or symptoms were reported regarding the EENT system. Derm: Skin is pink, warm \T\ dry. Musculoskeletal: No signs and/or symptoms reported regarding the musculoskeletal system. Injury Description: laceration to left ring finger tip, bleeding controlled, dressing in place. 19:15 Reassessment: Patient appears in no apparent distress at this time. Patient and/or jb4 family updated on plan of care and expected duration. Pain level reassessed. Patient is alert, oriented x 3, equal unlabored respirations, skin warm/dry/pink. PT reports blood pressure is always high when she comes to the ED due to being nervous. 20:15 Reassessment: Patient appears in no apparent distress at this time. Patient and/or jb4 family updated on plan of care and expected duration. Pain level reassessed. Patient is alert, oriented x 3, equal unlabored respirations, skin warm/dry/pink. 20:59 Reassessment: Wet to dry dressing applied to affecting finger. jb4 21:20 Reassessment: Patient appears in no apparent distress at this time. Patient and/or jb4 family updated on plan of care and expected duration. Pain level reassessed. Patient is alert, oriented x 3, equal unlabored respirations, skin warm/dry/pink. PT reports blood pressure is always elevated and that she did not take her evening medication. Refuses further blood pressure checks and refuses any treatment for blood pressure. verbalized understanding of d/c and follow up instructions. Ambulated out of ED with steady gait. Vital Signs: 17:22 BP 193 / 101; Pulse 58; Resp 17 S; Temp 97(TE); Pulse Ox 100% on R/A; Weight 97.07 kg ca1 (R); Height 5 ft. 4 in. (162.56 cm) (R); Pain 0/10; 17:27 BP 209 / 75; ca1 19:43 BP 163 / 107; Pulse 62; Resp 16; Pulse Ox 98% on R/A; jb4 20:30 BP 196 / 89; Pulse 59; Resp 16; Pulse Ox 100% on R/A; jb4 21:00 BP 200 / 88; Pulse 62; Resp 16; Pulse Ox 100% on R/A; jb4 17:22 Body Mass Index 36.73 (97.07 kg, 162.56 cm) ca1 ED Course: 16:55 Patient arrived in ED. mr 16:55 Kathrine Serrato MD is Private Physician. mr 17:25 Triage completed. ca1 17:26 Arm band placed on right wrist. ca1 18:26 Prosper Rodríguez PA is PHCP. jmm 18:26 Rikki Mcdonald MD is Attending Physician. m 18:30 Patient has correct armband on for positive identification. Bed in low position. Call hb light in reach. Side rails up X 1. 18:50 Jamaica Lopez, RN is Primary Nurse. 19:50 Primary Nurse role handed off by Jamaica Lopez, WEN jb 19:50 Talha Bob, RN is Primary Nurse. jb4 20:15 Assist provider with laceration repair on palmar aspect of distal phalanx of left ring jb4 finger that was 2.5 cm. or less using sutures. Set up tray. Performed by Prosper YU Dressed with 4X4s, Patient tolerated well. 21:07 Kathrine Serrato MD is Referral Physician. [facility] 21:24 Patient did not have IV access during this emergency room visit. jb4 Administered Medications: 19:45 Drug: Tetanus-Diphtheria Toxoid Adult 0.5 ml {Naturopathic Physician: [employer]. Exp: jb4 09/14/2021. Lot #: [id number]. } Route: IM; Site: left deltoid; 20:58 Follow up: Response: No adverse reaction jb4 20:15 Drug: Marcaine (0.5 %) 10 ml {Note: Administered by ER provider..} Volume: 10 ml; jb4 Route: Infiltration; 20:58 Follow up: Response: No adverse reaction jb4 Outcome: 21:07 Discharge ordered by . [facility] 21:24 Discharged to home ambulatory. jb4 21:24 Condition: stable 21:24 Discharge instructions given to patient, Instructed on discharge instructions, follow up and referral plans. wound care, Demonstrated understanding of instructions, follow-up care, wound care. 21:25 Patient left the ED. jb4 Signatures: Prosper Rodríguez PA PA jmm Kitty SalasJamaica, RN RN Talha Bob RN RN jb4 Briana Card RN RN ca1 Corrections: (The following items were deleted from the chart) 17: 17:22 Acuity: CARMEN 4 ca1 ca1 17: 17:22 BP 193 / 101; Pulse 58bpm; Resp 17bpm; Spontaneous; Pulse Ox 100% RA; Temp 97F ca1 Temporal; 97.07 kg Reported; Height 5 ft. 4 in. Reported; BMI: 36.7; Pain 0/10; ca1 21:23 19:15 Reassessment: Patient appears in no apparent distress at this time. Patient jb4 and/or family updated on plan of care and expected duration. Pain level reassessed. Patient is alert, oriented x 3, equal unlabored respirations, skin warm/dry/pink. jb4
--- NOTE | 2020-01-23 10:25 | EDPHYS ---
Physician Documentation [facility] Name: Malina Hernandez Age: 74 yrs Sex: Female : 1945 Arrival Date: 01/22/2020 Time: 16:55 Bed 8 Private MD: Kathrine Serrato F ED Physician Rikki Mcdonald HPI: 01/21 19:03 This 74 yrs old Female presents to ER via Ambulatory with complaints of jmm Finger laceration. 19:03 The patient or guardian reports injury. Onset: The symptoms/episode began/occurred jmm acutely, just prior to arrival. This is a 74 year old female with a history of a fib, copd, htn that presents to the ED with complaints of laceration to her left 3rd finger. Cut herself with new knife. Patient denies other injury. Unsure on tetanus immunization. Historical: - Allergies: 17:26 Prednisone; ca1 - PMHx: 17:26 Atrial Fib; COPD; Hypertension; Hypothyroidism; ca1 - PSHx: 17:26 Cholecystectomy; ca1 - Immunization history:: Adult Immunizations up to date, Last tetanus immunization: up to date. - Social history:: Smoking status: Patient/guardian denies using tobacco. ROS: 19:03 Constitutional: Negative for fever, chills, and weight loss, Cardiovascular: Negative jmm for chest pain, palpitations, and edema, Respiratory: Negative for shortness of breath, cough, wheezing, and pleuritic chest pain. 19:03 Skin: Positive for laceration(s). 19:03 All other systems are negative. Exam: 19:03 Constitutional: This is a well developed, well nourished patient who is awake, alert, jmm and in no acute distress. Head/Face: atraumatic. Eyes: EOMI, no conjunctival erythema appreciated ENT: Moist Mucus Membranes Neck: Trachea midline, Supple Chest/axilla: Normal chest wall appearance and motion. Cardiovascular: Regular rate and rhythm. No edema appreciated Respiratory: Normal respirations, no respiratory distress appreciated Abdomen/GI: Non distended, soft Back: Normal ROM 19:03 Skin: injury, laceration(s), small laceration noted to the 3rd distal phalanx. 19:03 Neuro: Orientation: is normal, Mentation: is normal, Memory: is normal. 19:03 Psych: Behavior/mood is pleasant, cooperative. Vital Signs: 17:22 BP 193 / 101; Pulse 58; Resp 17 S; Temp 97(TE); Pulse Ox 100% on R/A; Weight 97.07 kg ca1 (R); Height 5 ft. 4 in. (162.56 cm) (R); Pain 0/10; 17:27 BP 209 / 75; ca1 19:43 BP 163 / 107; Pulse 62; Resp 16; Pulse Ox 98% on R/A; jb4 20:30 BP 196 / 89; Pulse 59; Resp 16; Pulse Ox 100% on R/A; jb4 21:00 BP 200 / 88; Pulse 62; Resp 16; Pulse Ox 100% on R/A; jb4 17:22 Body Mass Index 36.73 (97.07 kg, 162.56 cm) ca1 Laceration: 21:05 Wound Repair of 1cm ( 0.4in ) subcutaneous laceration to palmar aspect of distal jmm phalanx of left middle finger. Distal neuro/vascular/tendon intact. Anesthesia: Local anesthetic administered with 3 mls of 0.5% marcaine. Wound prep: Simple cleansing with betadine by me. Skin closed with 3 6-0 Prolene using simple sutures and sterile technique. Patient tolerated well. MDM: 19:03 Patient medically screened. denisse 21:07 Data reviewed: vital signs, nurses notes. Counseling: I had a detailed discussion with denisse the patient and/or guardian regarding: the historical points, exam findings, and any diagnostic results supporting the discharge/admit diagnosis, the need for outpatient follow up, to return to the emergency department if symptoms worsen or persist or if there are any questions or concerns that arise at home. ED course: Patient given wound infection return precautions. Patient understood and agrees with the plan of care. . 01/21 20:38 Order name: Wound Care: wet to dry, cobain pressure dressing; Complete Time: 20:58 [facility] Administered Medications: 19:45 Drug: Tetanus-Diphtheria Toxoid Adult 0.5 ml {Band Manager: [employer]. Exp: jb4 09/14/2021. Lot #: [id number]. } Route: IM; Site: left deltoid; 20:58 Follow up: Response: No adverse reaction [facility] 20:15 Drug: Marcaine (0.5 %) 10 ml {Note: Administered by ER provider..} Volume: 10 ml; jb4 Route: Infiltration; 20:58 Follow up: Response: No adverse reaction jb4 Disposition: 01/22 07:14 Co-signature as Attending Physician, Rikki Mcdonald MD. rn Disposition: 01/22/20 21:07 Discharged to Home. Impression: Finger Laceration. - Condition is Stable. - Discharge Instructions: Laceration Care, Adult. - Medication Reconciliation Form, Thank You Letter, Antibiotic Education, Prescription Opioid Use form. - Follow up: Kathrine Serrato MD; When: 1 week; Reason: Recheck today's complaints, Continuance of care, Re-evaluation by your physician. Signatures: Prosper Rodríguez PA PA jmm Nieto, Roman, MD MD rn Bryson, James, RN RN jb4 Acob, WEN Warren RN ca1 Corrections: (The following items were deleted from the chart) 01/21 21:25 21:07 01/22/2020 21:07 Discharged to Home. Impression: Finger Laceration. Condition is jb4 Stable. Forms are Medication Reconciliation Form, Thank You Letter, Antibiotic Education, Prescription Opioid Use. Follow up: Kathrine Serrato; When: 1 week; Reason: Recheck today's complaints, Continuance of care, Re-evaluation by your physician. denisse
[2020-01-23 12:03] VITALS: TEMP 97
[2020-01-23 12:06] VITALS: O2SAT 100
[2020-01-23 12:07] VITALS: BP 200/88
== END 2020-01-22 21:25 | disposition home or self-care (01) ==
LOC: ER 16:49
PROC: 0JQK0ZZ Repair Left Hand Subcutaneous Tissue and Fascia, Open Approach (ICD-10-PCS; principal; 2020-01-22)
DX: S61.213A Laceration without foreign body of left middle finger without damage to nail, initial encounter (principal); W26.0XXA Contact with knife, initial encounter; Y93.9 Activity, unspecified; Y92.9 Unspecified place or not applicable; Z23 Encounter for immunization; Z88.8 Allergy status to other drugs, medicaments and biological substances; I10 Essential (primary) hypertension; I48.91 Unspecified atrial fibrillation
CPT/HCPCS: 90471; 90714; 99283

== ENCOUNTER 2021-11-17 08:14 | Emergency (ER) | payer OTHER ==
[2021-11-17 08:55] LABS: Absolute Lymphocytes (CBC) 1.3 K/uL (0.7-4.9); Hematocrit 39.9 % (36.0-45.0); Lymphocytes % 10.4 % (15.3-44.8); MPV 8.7 fL (7.6-11.3); RBC Red Blood Cell Count 4.67 M/uL (3.86-4.86)
[2021-11-17 08:56] LABS: Protime INR 1.06
[2021-11-17 09:06] LABS: Potassium 3.7 mmol/L (3.5-5.1); Troponin High Sensitivity 7.5 pg/mL (<58.9)
--- NOTE | 2021-11-17 09:06 | RAD REPORT ---
EXAM DESCRIPTION: RAD - Chest Single View - 11/17/2021 9:01 am CLINICAL HISTORY: fall Chest pain. COMPARISON: Chest Pa And Lat (2 Views) dated 06/12/2018; Chest Single View dated 11/18/2017; Chest Pa And Lat (2 Views) dated 07/21/2017; Chest Single View dated 01/07/2017 FINDINGS: Portable technique limits examination quality. Mild interstitial pulmonary edema seen. The heart is moderately enlarged in size. No displaced fractu res.Aortic atherosclerosis. IMPRESSION: Mild CHF.
--- NOTE | 2021-11-17 10:51 | RAD REPORT ---
EXAM DESCRIPTION: CT - Head Brain Wo Cont - 11/17/2021 10:44 am CLINICAL HISTORY: fall, head trauma Trauma, head injury COMPARISON: No comparisons TECHNIQUE: All CT scans are performed using dose optimization technique as appropriate and may inclu de automated exposure control or mA/KV adjustment according to patient size. FINDINGS: No intracranial hemorrhage, hydrocephalus or extra-axial fluid collection.Mild to moderate generalized brain atrophy.No areas of brain edema or evidence of midline shift. The paranasal sinuses and mastoids are clear. The calvarium is intact. Right posterior scalp hematoma . IMPRESSION: No acute intracranial abnormality.
[2021-11-17] MEDS ORDERED: NA CHLORIDE 0.9% 500 ML ONE (11:17)
--- NOTE | 2021-11-17 11:49 | EDPHYS ---
Physician Documentation [facility] Name: Malina Hernandez Age: 76 yrs Sex: Female : 1945 Arrival Date: 11/17/2021 Time: 08:16 Bed 5 Private MD: ED Physician Theresa Miller HPI: 11/17 08:34 This 76 yrs old Female presents to ER via Ambulatory with complaints of Fall Injury - pm1 Head Lac. 08:34 Details of fall: The patient fell from an upright position, while standing. Onset: The pm1 symptoms/episode began/occurred this morning, at 03:00. Associated injuries: The patient sustained injury to the head, laceration, of the Back of head. Severity of symptoms: in the emergency department the symptoms are unchanged. The patient has not experienced similar symptoms in the past. The patient has not recently seen a physician. Patient was changing position from sitting on her bed to standing and got dizzy as she was trying to get to the bathroom at 3 in the morning patient fell on the back of her head resulting in a laceration that initially stopped bleeding but when she woke up this morning the bleeding continued and she presented here to the ER for evaluation of the laceration. Patient is taking a blood thinner. Historical: - Allergies: 08:23 Prednisone; ss - PMHx: 08:23 Atrial Fib; COPD; Hypertension; Hypothyroidism; ss - Immunization history:: Client reports receiving the 2nd dose of the Covid vaccine. - Social history:: Smoking status: Patient denies any tobacco usage or history of. ROS: 08:34 Constitutional: Negative for fever, chills, and weight loss, Cardiovascular: Negative pm1 for chest pain, palpitations, and edema, Respiratory: Negative for shortness of breath, cough, wheezing, and pleuritic chest pain, Abdomen/GI: Negative for abdominal pain, nausea, vomiting, diarrhea, and constipation, MS/Extremity: Negative for injury and deformity. 08:34 Neuro: Negative for headache, weakness, numbness, tingling, and seizure. 08:34 Skin: Positive for laceration(s), of the right parietal area. 08:34 All other systems are negative. Exam: 08:34 Constitutional: This is a well developed, well nourished patient who is awake, alert, pm1 and in no acute distress. 08:34 Back: No spinal tenderness. No costovertebral tenderness. Full range of motion. Skin: Warm, dry with normal turgor. Normal color with no rashes, no lesions, and no evidence of cellulitis. MS/ Extremity: Pulses equal, no cyanosis. Neurovascular intact. Full, normal range of motion. 08:34 Head/face: Noted is no obvious of injury or deformity except abrasion(s), of the Small abrasion, approximately 2 mm in length, present to right parietal area, contusion, that is superficial, of the right parietal area. 08:34 Cardiovascular: Exam negative for acute changes, Rate: normal, Rhythm: regular, Pulses: no pulse deficits are appreciated, Heart sounds: normal, normal S1and S2. 08:34 Respiratory: Exam negative for acute changes, respiratory distress, shortness of breath, Breath sounds: are clear throughout. 08:34 Abdomen/GI: Exam negative for acute changes, Inspection: abdomen appears normal, Palpation: abdomen is soft and non-tender, in all quadrants. 08:34 Neuro: Exam negative for acute changes, Orientation: is normal, Mentation: is normal, Motor: is normal, moves all fours. Vital Signs: 08:22 Pulse 66; Resp 16; Temp 97.7(TE); Pulse Ox 95% on R/A; Weight 95.25 kg; Height 5 ft. 4 ss in. (162.56 cm); Pain 1/10; 08:28 BP 172 / 101; ph 09:24 BP 161 / 63; Pulse 52; Resp 17; Pulse Ox 97% on R/A; wynn 10:57 BP 185 / 96; Pulse 58; Resp 18; Pulse Ox 96% on R/A; ph 08:22 Body Mass Index 36.05 (95.25 kg, 162.56 cm) ss 08:28 pt has not taken morning BP meds ph MDM: 08:31 Patient medically screened. pm1 08:36 ED course: Patient refused tailbone xray. pm1 11:33 Data reviewed: vital signs. Data interpreted: Pulse oximetry: on room air is 96 %. pm1 Interpretation: normal. 11:33 Counseling: I had a detailed discussion with the patient and/or guardian regarding: the pm1 historical points, exam findings, and any diagnostic results supporting the discharge/admit diagnosis, lab results, radiology results, the need for outpatient follow up, to return to the emergency department if symptoms worsen or persist or if there are any questions or concerns that arise at home. 11:33 ED course: No laceration present for suturing. Small abrasion present to the back head pm1 with contusion. Discussed the patient and her daughter that best course of treatment would be pressure dressing to her scalp. 11/17 08:34 Order name: Basic Metabolic Panel; Complete Time: 09:21 pm1 11/17 08:34 Order name: CBC with Diff; Complete Time: 08:58 pm1 11/17 08:34 Order name: PT-INR; Complete Time: 08:58 pm1 11/17 08:34 Order name: Troponin HS; Complete Time: 09:21 pm1 11/17 08:34 Order name: XRAY Chest (1 view); Complete Time: 09:21 pm1 11/17 10:33 Order name: CT Head Brain wo Cont; Complete Time: 11:30 ss 11/17 08:34 Order name: EKG - Nurse/Tech; Complete Time: 08:45 pm1 11/17 08:34 Order name: Cardiac monitoring; Complete Time: 08:45 pm1 11/17 08:34 Order name: IV Saline Lock; Complete Time: 08:45 pm1 11/17 08:34 Order name: Labs collected and sent; Complete Time: 08:45 pm1 11/17 08:34 Order name: O2 Per Protocol; Complete Time: 08:45 pm1 11/17 08:34 Order name: O2 Sat Monitoring; Complete Time: 08:45 pm1 Administered Medications: 11:15 Drug: NS 0.9% 500 ml Route: IV; Rate: bolus; Site: right antecubital; wynn 12:00 Follow up: Response: No adverse reaction; IV Status: Completed infusion; IV Intake: ph 500ml Disposition Summary: 11/17/21 11:49 Discharge Ordered Location: Home pm1 Problem: new pm1 Symptoms: have improved pm1 Condition: Stable pm1 Diagnosis - Abrasion of scalp pm1 - Fall on same level, unspecified pm1 - Unspecified injury of head, initial encounter pm1 - Dehydration pm1 Followup: pm1 - With: Emergency Department - When: As needed - Reason: Worsening of condition Followup: pm1 - With: Private Physician - When: 2 - 3 days - Reason: Recheck today's complaints, Continuance of care, Re-evaluation by your physician Discharge Instructions: - Discharge Summary Sheet pm1 - Abrasion pm1 - Head Injury, Adult pm1 - Fall Prevention in the Home, Adult pm1 Forms: - Medication Reconciliation Form pm1 - Thank You Letter pm1 - Antibiotic Education pm1 - Prescription Opioid Use pm1 Addendum: 11/19/2021 18:34 Co-signature as Attending Physician, Theresa gimenez a2 Signatures: Dispatcher [employer] Ana Todd, WEN RN ss Nick Reilly NP CVT RN pm1 Theresa Miller MD MD ny2 [place] Garcia RN RN wynn Emely Alvarado RN ph
--- NOTE | 2021-11-17 11:49 | ER ---
Nurse's Notes [facility] Name: Malina Hernandez Age: 76 yrs Sex: Female : 1945 Arrival Date: 11/17/2021 Time: 08:16 Bed 5 Private MD: Diagnosis: Abrasion of scalp;Fall on same level, unspecified;Unspecified injury of head, initial encounter;Dehydration Presentation: 11/17 08:22 Chief complaint: Patient states: Fell while walking into the bathroom at 0300 this morning. Pt and family member states that initially, the laceration was not bleeding, but now it started. No active bleeding noted at this time. Pt denies LOC. Coronavirus screen: Client denies travel out of the [place] in the last 14 days. Ebola Screen: Patient denies exposure to infectious person. Patient denies travel to an Ebola-affected area in the 21 days before illness onset. Initial Sepsis Screen: Does the patient meet any 2 criteria? No. Patient's initial sepsis screen is negative. Does the patient have a suspected source of infection? No. Patient's initial sepsis screen is negative. Risk Assessment: Do you want to hurt yourself or someone else? Patient reports no desire to harm self or others. Onset of symptoms was November 17, 2021. 08:22 Method Of Arrival: Ambulatory ss 08:22 Acuity: CARMEN 4 ss Historical: - Allergies: 08:23 Prednisone; ss - PMHx: 08:23 Atrial Fib; COPD; Hypertension; Hypothyroidism; ss - Immunization history:: Client reports receiving the 2nd dose of the Covid vaccine. - Social history:: Smoking status: Patient denies any tobacco usage or history of. Screenin:25 Abuse screen: Denies threats or abuse. Denies injuries from another. Nutritional ss screening: No deficits noted. 08:48 Tuberculosis screening: No symptoms or risk factors identified. Fall Risk Fall in past ph 12 months (25 points). No secondary diagnosis (0 pts). IV access (20 points). Ambulatory Aid- None/Bed Rest/Nurse Assist (0 pts). Gait- Normal/Bed Rest/Wheelchair (0 pts) Mental Status- Oriented to own ability (0 pts). Total Cabrales Fall Scale indicates Low Risk Score (25-44 pts). Fall prevention measures have been instituted. Side Rails Up X 2 Placed close to Nursing Station Frequent Obs/Assesments occuring Family Present and informed to notify staff if they need to leave bedside As available Patient and Family Educated on Fall Prevention Program and strategies. Assessment: 08:29 General: Appears in no apparent distress. comfortable, Behavior is calm, cooperative, ph appropriate for age. Pain: Complains of pain in right parietal area. Neuro: Level of Consciousness is awake, alert, obeys commands, Oriented to person, place, time, situation. Cardiovascular: Denies chest pain, shortness of breath, Capillary refill < 3 seconds in bilateral fingers Patient's skin is warm and dry. Respiratory: Airway is patent Respiratory effort is even, unlabored. Derm: Skin is healthy with good turgor, Skin is pink, warm \T\ dry. Musculoskeletal: Circulation, motion, and sensation intact. Range of motion: intact in all extremities. Injury Description: Laceration sustained to right parietal area is superficial, 0.5 to 2.5 cm long, small amount of bleeding noted to small lacerations x 2 was sustained 4-6 hours ago. 10:57 Reassessment: Patient appears in no apparent distress at this time. Patient and/or ph family updated on plan of care and expected duration. Pain level reassessed. Patient is alert, oriented x 3, equal unlabored respirations, skin warm/dry/pink. Vital Signs: 08:22 Pulse 66; Resp 16; Temp 97.7(TE); Pulse Ox 95% on R/A; Weight 95.25 kg; Height 5 ft. 4 ss in. (162.56 cm); Pain 08/10; 08:28 BP 172 / 101; ph 09:24 BP 161 / 63; Pulse 52; Resp 17; Pulse Ox 97% on R/A; wynn 10:57 BP 185 / 96; Pulse 58; Resp 18; Pulse Ox 96% on R/A; ph 08:22 Body Mass Index 36.05 (95.25 kg, 162.56 cm) ss 08:28 pt has not taken morning BP meds ph Vitals: 10:57 Cardiac Rhythm Assessment Sinus bernadette. ph ED Course: 08:16 Patient arrived in ED. ds1 08:19 Nick Reilly NP is PHCP. pm1 08:19 Theresa Miller MD is Attending Physician. pm1 08:23 Triage completed. ss 08:23 Arm band placed on right wrist. ss 08:31 Patient has correct armband on for positive identification. Placed in gown. Bed in low ph position. Call light in reach. Side rails up X 1. Pulse ox on. NIBP on. Door closed. Noise minimized. 08:48 Emely Alvarado, RN is Primary Nurse. ph 09:03 XRAY Chest (1 view) In Process Unspecified. EDMS 10:45 CT Head Brain wo Cont In Process Unspecified. EDMS 12:09 No provider procedures requiring assistance completed. Inserted saline lock: 20 gauge wynn in right antecubital area, using aseptic technique. IV discontinued, intact, Pressure dressing applied. Administered Medications: 11:15 Drug: NS 0.9% 500 ml Route: IV; Rate: bolus; Site: right antecubital; wynn 12:00 Follow up: Response: No adverse reaction; IV Status: Completed infusion; IV Intake: ph 500ml Intake: 12:00 IV: 500ml; Total: 500ml. ph Outcome: 11:49 Discharge ordered by . pm1 12:09 Discharged to home with family. wynn 12:09 Condition: good 12:09 Discharge instructions given to patient. 12:25 Patient left the ED. wynn Signatures: Dispatcher [employer] [facility] Delia Carr ds1 Ana Marquez RN RN Emely Alvarado, RN Nick Hardy ph, [employer] pm1 [place] lind RN RN wynn
[2021-11-17 15:37] VITALS: TEMP 97.7
[2021-11-17 15:41] VITALS: BP 185/96; O2SAT 96
--- NOTE | 2021-11-19 07:58 | EKG ---
Test Date: 2021-11-17 Test Time: 08:38:36 [employer] Technician: PH MEASUREMENT RESULTS: Intervals: Rate: 57 MA: 200 QRSD: 108 QT: 464 QTc: 451 [place]: P: 79 MA: 200 QRS: 78 T: 57 INTERPRETIVE STATEMENTS: Sinus bradycardia Cannot rule out Anterior infarct, age undetermined ST & T wave abnormality, consider inferior ischemia Abnormal ECG Compared to ECG 06/12/2018 07:09:40 Myocardial infarct finding now present Possible ischemia now present Sinus rhythm no longer present ST (T wave) deviation still present Electronically Signed On 11-19-21 07:56:44 CDT by Delbert Jaimes
== END 2021-11-17 12:25 | disposition home or self-care (01) ==
LOC: ER 08:14
DX: S00.01XA Abrasion of scalp, initial encounter (principal); E86.0 Dehydration; W18.30XA Fall on same level, unspecified, initial encounter; I10 Essential (primary) hypertension; I48.91 Unspecified atrial fibrillation; J44.9 Chronic obstructive pulmonary disease, unspecified; E03.9 Hypothyroidism, unspecified; Z79.01 Long term (current) use of anticoagulants; Z88.8 Allergy status to other drugs, medicaments and biological substances
CPT/HCPCS: 93005; 85025; 80048; 36415; 85610; 84484; 70450; 71045; 96360; 99284; J7040

== ENCOUNTER 2021-11-21 16:54 | Inpatient (IN) | payer OTHER ==
--- NOTE | 2021-11-21 17:45 | RAD REPORT ---
EXAM DESCRIPTION: CT - [id number] - 11/21/2021 5:29 pm CLINICAL HISTORY: Trauma, head and neck injury. head trauma COMPARISON: <Comparisons> TECHNIQUE: Axial 5 mm thick images of the head were obtained. Axial 2 mm thick images of the cervical spine were obtained with sagittal and coronal reconstruction images generated and reviewed. All CT scans are performed using dose optimization technique as appropriate and may include automated exposure control or mA/KV adjustment according to patient size. FINDINGS: CT HEAD WITHOUT CONTRAST: No acute hemorrhage, hydrocephalus or extra-axial collection is identified.Moderate generalized brain atrophy.No areas of brain edema or midline shift. The paranasal sinuses and mastoids are clear.The calvarium is intact. Large posterior scalp hematoma. CT CERVICAL SPINE WITHOUT CONTRAST: No fracture or subluxation.Moderate cervical degenerative changes.No prevertebral soft tissues swelli ng is identified. Aberrant right subclavian artery, normal variant. IMPRESSION: No acute intracranial or cervical spine findings.
[2021-11-21] MEDS ORDERED: NA CHLORIDE 0.9% 1,000 ML ONE (17:50)
[2021-11-21 17:56] LABS: Absolute Lymphocytes (CBC) 0.7 K/uL (0.7-4.9); Hematocrit 33.9 % (36.0-45.0); Lymphocytes % 9.2 % (15.3-44.8); MPV 8.6 fL (7.6-11.3); RBC Red Blood Cell Count 3.95 M/uL (3.86-4.86)
[2021-11-21] MEDS ORDERED: ONDANSETRON 4 MG/2 ML VIAL ONE (18:01)
[2021-11-21] MEDS ORDERED: MORPHINE 4 MG/ML SYR ONE (18:01)
[2021-11-21 18:05] LABS: Protime INR 1.12
[2021-11-21 18:13] LABS: Albumin 3.4 g/dL (3.4-5.0); Bilirubin Total 0.5 mg/dL (0.2-1.0); Potassium 3.6 mmol/L (3.5-5.1); Protein, Total 6.7 g/dL (6.4-8.2)
--- NOTE | 2021-11-21 18:13 | RAD REPORT ---
EXAM DESCRIPTION: RAD - Ankle Right 3 View - 11/21/2021 5:58 pm CLINICAL HISTORY: PAIN COMPARISON: No comparisons FINDINGS: Trimalleolar fracture of the ankle is present without significant displacement. Moderate s oft tissue swelling is noted. Moderate calcaneal spurs.
--- NOTE | 2021-11-21 18:13 | RAD REPORT ---
EXAM DESCRIPTION: RAD - Chest Single View - 11/21/2021 5:58 pm CLINICAL HISTORY: CONGESTION Chest pain. COMPARISON: Chest Single View dated 11/17/2021; Chest Pa And Lat (2 Views) dated 06/12/2018; Chest Si ngle View dated 11/18/2017; Chest Pa And Lat (2 Views) dated 07/21/2017 FINDINGS: Portable technique limits examination quality. Mild pulmonary edema. The heart is moderately enlarged. No displaced fractures.Aortic atherosclerosis . IMPRESSION: Mild CHF.
[2021-11-21 18:23] LABS: Urine Blood Negative (Negative); Urine Glucose Negative (Negative); Urine Protein Negative (Negative); Urine Specific Gravity 1.015 (1.005-1.030); Urine pH 5.5 (5.0-7.0)
--- NOTE | 2021-11-21 18:47 | ER ---
Nurse's Notes [facility] Name: Malina Hernandez Age: 76 yrs Sex: Female : 1945 Arrival Date: 11/21/2021 Time: 16:57 Bed 19 Private MD: Diagnosis: Nondisplaced trimalleolar fracture of right lower leg, initial encounter for closed fracture;Muscle weakness (generalized) Presentation: 11/21 16:59 Chief complaint: Patient states: Fell again today. +hematoma to back of head. No LOC. R ll1 ankle pain also. On eliquis. Falling more frequently the past 3 weeks. Coronavirus screen: Vaccine status: Patient reports receiving the 2nd dose of the covid vaccine. Client denies travel out of the [place] in the last 14 days. At this time, the client does not indicate any symptoms associated with coronavirus-19. Ebola Screen: Patient denies travel to an Ebola-affected area in the 21 days before illness onset. Initial Sepsis Screen: Does the patient meet any 2 criteria? No. Patient's initial sepsis screen is negative. Does the patient have a suspected source of infection? No. Patient's initial sepsis screen is negative. Risk Assessment: Do you want to hurt yourself or someone else? Patient reports no desire to harm self or others. Onset of symptoms was November 21, 2021. 16:59 Method Of Arrival: EMS ll1 16:59 Acuity: CARMEN 3 ll1 17:02 Care prior to arrival: None. Mechanism of Injury: Fall. Trauma event details: Injury ll1 occurred in the [facility]. Triage Assessment: 17:00 General: Appears uncomfortable, Behavior is cooperative, appropriate for age. Pain: ll1 Complains of pain in head, R ankle Quality of pain is described as aching. Neuro: Reports headache weakness. Musculoskeletal: Reports pain in R ankle. Injury Description: Bruise. Trauma Activation: Alert Physician: ED Physician; Name: mariano; Notified At: ; Arrived At: Physician: General Surgeon; Name: ; Notified At: ; Arrived At: Physician: Radiology; Name: ; Notified At: ; Arrived At: Physician: Respiratory; Name: ; Notified At: ; Arrived At: Physician: Lab; Name: ; Notified At: ; Arrived At: Historical: - Allergies: 17:00 Prednisone; ll1 - PMHx: 17:00 Atrial Fib; COPD; Hypertension; Hypothyroidism; ll1 - Immunization history:: Client reports receiving the 2nd dose of the Covid vaccine. - Social history:: Smoking status: Patient/guardian denies using tobacco, the patient reports quitting approximately 35 years ago. - Immunization history: Last tetanus immunization: - up to date. - Family history:: not pertinent. Screenin:01 Abuse screen: Denies threats or abuse. Nutritional screening: No deficits noted. ll1 Tuberculosis screening: No symptoms or risk factors identified. 17:03 Fall Risk Fall in past 12 months (25 points). IV access (20 points). Gait- Weak (10 ll1 pts.). Total Cabrales Fall Scale indicates High Risk Score (45 or more points). Fall prevention measures have been instituted. Side Rails Up X 2 Placed Close to Nursing Station Frequent Obs/Assessments Occuring Family Present and informed to notify staff if the need to leave the bedside As available patient and family educated on Fall Prevention Program and Strategies. Primary Survey: 17:01 NO uncontrolled hemorrhage observed. A: Airway: patent. Breathing/Chest: Chest ll1 inspection: symmetrical rise and fall of the chest. Circulation: Skin color: pink. Disability Alert. Exposure/Environment: A warming method has been applied: A warm blanket has been provided to the patient. 23:16 Reassessment Breathing/Chest Respiratory pattern Regular Respiratory effort Spontaneous ag7 Unlabored Breath sounds Clear. Assessment: 18:00 Reassessment: No changes from previously documented assessment. Patient and/or family ll1 updated on plan of care and expected duration. Pain level reassessed. Patient is alert, oriented x 3, equal unlabored respirations, skin warm/dry/pink. 18:52 Reassessment: No changes from previously documented assessment. Patient and/or family ll1 updated on plan of care and expected duration. Pain level reassessed. Patient is alert, oriented x 3, equal unlabored respirations, skin warm/dry/pink. 19:00 Reassessment: No changes from previously documented assessment. Patient and/or family ag7 updated on plan of care and expected duration. Pain level reassessed. Patient is alert, oriented x 3, equal unlabored respirations, skin warm/dry/pink. Pain: Complains of pain in medial aspect of right foot Pain does not radiate. Pain currently is 8 out of 10 on a pain scale. Quality of pain is described as aching, Pain began suddenly, Is continuous. 20:00 Reassessment: Patient and/or family updated on plan of care and expected duration. Pain ag7 level reassessed. Patient is alert, oriented x 3, equal unlabored respirations, skin warm/dry/pink. 21:00 Reassessment: Patient and/or family updated on plan of care and expected duration. Pain ag7 level reassessed. Patient is alert, oriented x 3, equal unlabored respirations, skin warm/dry/pink. 22:12 Reassessment: Spoke to Elda for report. call back pending. ag7 23:00 Reassessment: No changes from previously documented assessment. ag7 Vital Signs: 17:12 Weight 95.25 kg; Height 5 ft. 4 in. (162.56 cm); ll1 17:19 BP 148 / 69; Pulse 60; Resp 17; Temp 98.0; Pulse Ox 97% on R/A; Pain 8/10; ll1 18:54 BP 152 / 85; Pulse 56; Resp 16; Pulse Ox 95% on R/A; ll1 19:09 BP 174 / 133; Pulse 56; Pulse Ox 94% ; Pain 8/10; ag7 21:00 Pain 5/10; ag7 17:12 Body Mass Index 36.05 (95.25 kg, 162.56 cm) ll1 [place] Coma Score: 17:02 Eye Response: spontaneous(4). Verbal Response: oriented(5). Motor Response: obeys ll1 commands(6). Total: 15. Trauma Score (Adult): 17:02 Eye Response: spontaneous(1); Verbal Response: oriented(1); Motor Response: obeys ll1 commands(2); Systolic BP: > 89 mm Hg(4); Respiratory Rate: 10 to 29 per min(4); Pj Score: 15; Trauma Score: 12 ED Course: 16:57 Patient arrived in ED. ll1 16:57 Theresa Miller MD is Attending Physician. ma2 17:00 Triage completed. ll1 17:00 Arm band placed on Patient placed in an exam room, on a stretcher. ll1 17:02 Patient has correct armband on for positive identification. Bed in low position. Call ll1 light in reach. Side rails up X2. Pulse ox on. NIBP on. 17:02 Patient maintains SpO2 saturation greater than 95% on room air. ll1 17:02 Thermoregulation: warm blanket given to patient. ll1 17:03 Villa Sharpe, WEN is Primary Nurse. ll1 17:30 CT Head C Spine In Process Unspecified. EDMS 17:35 Inserted saline lock: 22 gauge in right forearm, using aseptic technique. Blood ll1 collected. 18:00 Chest Single View XRAY In Process Unspecified. EDMS 18:00 Ankle Right 3 View XRAY In Process Unspecified. EDMS 18:24 Irvin cath inserted, using sterile technique, 16 Fr., by ia, balloon inflated, to mb7 gravity drainage, clamped. urine specimen collected. returned clear yellow urine. Patient tolerated well. 18:46 Theresa Rodriguez MD is Hospitalizing Provider. ma2 19:29 Primary Nurse role handed off by Villa Sharpe RN mw2 20:15 Kasia Chin RN is Primary Nurse. ag7 23:16 No provider procedures requiring assistance completed. ag7 23:18 Patient admitted, IV remains in place. ag7 23:54 Theresa Rodriguez MD is Hospitalizing Provider. vc1 Administered Medications: 18:10 Drug: Zofran (Ondansetron) 2 mg Route: IVP; Site: right forearm; ll1 18:54 Follow up: Response: No adverse reaction ll1 18:16 Drug: NS 0.9% (30 ml/kg) 30 ml/kg Route: IV; Rate: bolus; Site: right forearm; ll1 19:30 Follow up: IV Status: Completed infusion; IV Intake: 1000ml ag7 18:16 Drug: morphine 4 mg {Note: rass 0, pain 8/10.} Route: IVP; Site: right forearm; ll1 18:54 Follow up: Response: No adverse reaction ll1 20:36 Drug: Dilaudid (HYDROmorphone) 2 mg Route: IVP; Site: right antecubital; ag7 21:00 Follow up: Pain 5/10 Adult ag7 Intake: 19:30 IV: 1000ml; Total: 1000ml. ag7 Outcome: 18:46 Decision to Hospitalize by Provider. ma2 18:46 Decision to Hospitalize by Provider. vc1 23:17 Admitted to Med/surg accompanied by nurse, via stretcher, room Rm 212, Report called to ag7 Brianna CARVER 23:17 Condition: stable 23:17 Patient left the ED. vc1 Signatures: Dispatcher [employer] EDMS Theresa Miller MD MD ma2 Abran Kelley mw2 Villa Sharpe RN RN ll1 Kitty Jansen mb7 Temi Moreno RN RN vc1 Ksaia Chin RN RN ag7 Corrections: (The following items were deleted from the chart) 17:20 17:00 Social history: Smoking status: Patient denies any tobacco usage or history of. ll1 ll1 18:53 16:35 Inserted saline lock: 22 gauge in right forearm, using aseptic technique. Blood ll1 collected. ll1 23:24 23:17 Admitted to Med/surg accompanied by nurse, via wheelchair, room Rm 212, Report ag7 called to Brianna CARVER ag7 11/22 00:24 00:19 Decision to Hospitalize by Provider. vc1 vc1 00:24 00:23 Patient left the ED. vc1 vc1
--- NOTE | 2021-11-21 18:47 | EDPHYS ---
Physician Documentation [facility] Name: Malina Hernandez Age: 76 yrs Sex: Female : 1945 Arrival Date: 11/21/2021 Time: 16:57 Bed 19 Private MD: ED Physician Theresa Miller HPI: 11/21 17:47 This 76 yrs old Female presents to ER via EMS with complaints of Fall Injury, Ankle ma2 Injury, Closed Head Injury-Adult. 17:47 Onset: The symptoms/episode began/occurred gradually, 1 day(s) ago. An IV generalized ma2 weakness for few weeks, had a fall recently last week, she presents with another fall that happened this morning, she was walking and felt extremely weak could not continue to stand up so she fell backward the back of the head, and twisted her right ankle,. Historical: - Allergies: 17:00 Prednisone; ll1 - PMHx: 17:00 Atrial Fib; COPD; Hypertension; Hypothyroidism; ll1 - Immunization history:: Client reports receiving the 2nd dose of the Covid vaccine. - Social history:: Smoking status: Patient/guardian denies using tobacco, the patient reports quitting approximately 35 years ago. - Immunization history: Last tetanus immunization: - up to date. - Family history:: not pertinent. ROS: 17:47 Constitutional: Negative for fever, chills, and weight loss. ma2 17:47 All other systems are negative. Exam: 17:47 Constitutional: This is a well developed, well nourished patient who is awake, alert, ma2 and in no acute distress. Head/Face: Occipital hematoma, otherwise normocephalic, atraumatic. Eyes: Pupils equal round and reactive to light, extra-ocular motions intact. Lids and lashes normal. Conjunctiva and sclera are non-icteric and not injected. Cornea within normal limits. Periorbital areas with no swelling, redness, or edema. ENT: Nares patent. No nasal discharge, no septal abnormalities noted. Tympanic membranes are normal and external auditory canals are clear. Oropharynx with no redness, swelling, or masses, exudates, or evidence of obstruction, uvula midline. Mucous membranes moist. Neck: Trachea midline, no thyromegaly or masses palpated, and no cervical lymphadenopathy. Supple, full range of motion without nuchal rigidity, or vertebral point tenderness. No Meningismus. Chest/axilla: Normal chest wall appearance and motion. Nontender with no deformity. No lesions are appreciated. Cardiovascular: Regular rate and rhythm with a normal S1 and S2. No gallops, murmurs, or rubs. Normal PMI, no JVD. No pulse deficits. Respiratory: Lungs have equal breath sounds bilaterally, clear to auscultation and percussion. No rales, rhonchi or wheezes noted. No increased work of breathing, no retractions or nasal flaring. Abdomen/GI: Soft, non-tender, with normal bowel sounds. No distension or tympany. No guarding or rebound. No evidence of tenderness throughout. Skin: Warm, dry with normal turgor. Normal color with no rashes, no lesions, and no evidence of cellulitis. MS/ Extremity: There is to palpation over right medial malleolus, otherwise foot exam is unremarkable lateral malleolus with no tenderness, otherwise pulses equal, no cyanosis. Neurovascular intact. Full, normal range of motion. Neuro: Awake and alert, GCS 15, oriented to person, place, time, and situation. Cranial nerves II-XII grossly intact. Motor strength 5/5 in all extremities. Sensory grossly intact. Cerebellar exam normal. Normal gait. Vital Signs: 17:12 Weight 95.25 kg; Height 5 ft. 4 in. (162.56 cm); ll1 17:19 BP 148 / 69; Pulse 60; Resp 17; Temp 98.0; Pulse Ox 97% on R/A; Pain 8/10; ll1 18:54 BP 152 / 85; Pulse 56; Resp 16; Pulse Ox 95% on R/A; ll1 19:09 BP 174 / 133; Pulse 56; Pulse Ox 94% ; Pain 8/10; ag7 21:00 Pain 5/10; ag7 17:12 Body Mass Index 36.05 (95.25 kg, 162.56 cm) ll1 [place] Coma Score: 17:02 Eye Response: spontaneous(4). Verbal Response: oriented(5). Motor Response: obeys ll1 commands(6). Total: 15. Trauma Score (Adult): 17:02 Eye Response: spontaneous(1); Verbal Response: oriented(1); Motor Response: obeys ll1 commands(2); Systolic BP: > 89 mm Hg(4); Respiratory Rate: 10 to 29 per min(4); Pj Score: 15; Trauma Score: 12 MDM: 17:01 Patient medically screened. [facility] 17:47 Differential diagnosis: closed head injury, contusion, fracture, sprain, strain. [facility] 18:44 Data reviewed: vital signs, nurses notes. Counseling: I had a detailed discussion with ma2 the patient and/or guardian regarding: the historical points, exam findings, and any diagnostic results supporting the discharge/admit diagnosis, the presence of at least one elevated blood pressure reading (>120/80) during this emergency department visit, the need for outpatient follow up. Response to treatment: the patient's symptoms have markedly improved after treatment. ED course: Patient has right ankle trimalleolar fracture closed nondisplaced, neurovascular is intact, cap refills brisk palpable pulses at DP and PT, sensation is intact, I discussed with Dr. Joseph orthopedic and advised to admit patient to hospitalist. Of note patient takes Eliquis which she took this morning, stated is unremarkable work-up for generalized weakness also came back unremarkable so far. Discussed with Jil Nelson hospitalist. 11/21 16:58 Order name: Blood Culture Adult (2) [facility] 11/21 16:58 Order name: CBC with Diff; Complete Time: 18:05 [facility] 11/21 16:58 Order name: CMP; Complete Time: 18:24 [facility] 11/21 16:58 Order name: Lactate; Complete Time: 18:24 [facility] 11/21 16:58 Order name: Protime (+inr); Complete Time: 18:05 [facility] 11/21 16:58 Order name: Ptt, Activated; Complete Time: 18:05 [facility] 11/21 16:58 Order name: CT Head C Spine; Complete Time: 18:05 [facility] 11/21 16:58 Order name: Urine Microscopic Only; Complete Time: 19:09 [facility] 11/21 16:58 Order name: Chest Single View XRAY; Complete Time: 18:24 [facility] 11/21 17:11 Order name: Ankle Right 3 View XRAY; Complete Time: 18:24 ll1 11/21 18:24 Order name: Urine Dipstick-Ancillary; Complete Time: 18:24 EDMS 11/21 18:44 Order name: TSH; Complete Time: 19:55 ma2 11/21 18:44 Order name: T4 Free; Complete Time: 19:55 ma2 11/21 19:33 Order name: COVID-19/FLU A+B (Document "Date of Onset" if Symptomatic); Complete Time: mw2 22:05 11/21 16:58 Order name: Cardiac monitoring; Complete Time: 18:41 ma2 11/21 16:58 Order name: EKG - Nurse/Tech; Complete Time: 18:41 ma2 11/21 16:58 Order name: IV Saline Lock - Large Bore; Complete Time: 17:04 ma2 11/21 16:58 Order name: Labs collected and sent; Complete Time: 17:04 ms2 11/21 16:58 Order name: O2 Per Protocol; Complete Time: 17:04 ma2 11/21 16:58 Order name: O2 Sat Monitoring; Complete Time: 17:04 ms2 11/21 17:46 Order name: Irvin; Complete Time: 18:15 eb 11/21 18:31 Order name: Splint - Posterior Leg: right; Complete Time: 21:13 ma2 Administered Medications: 18:10 Drug: Zofran (Ondansetron) 2 mg Route: IVP; Site: right forearm; ll1 18:54 Follow up: Response: No adverse reaction ll1 18:16 Drug: NS 0.9% (30 ml/kg) 30 ml/kg Route: IV; Rate: bolus; Site: right forearm; ll1 19:30 Follow up: IV Status: Completed infusion; IV Intake: 1000ml ag7 18:16 Drug: morphine 4 mg {Note: rass 0, pain 8/10.} Route: IVP; Site: right forearm; ll1 18:54 Follow up: Response: No adverse reaction ll1 20:36 Drug: Dilaudid (HYDROmorphone) 2 mg Route: IVP; Site: right antecubital; ag7 21:00 Follow up: Pain 5/10 Adult ag7 Disposition Summary: 11/22/21 00:19 Hospitalization Ordered Hospitalization Status: Inpatient Admission(11/22/21 00:19) vc1 Provider: Theresa Rodriguez(11/22/21 00:19) vc1 Location: Telemetry/MedSurg (Inpatient)(11/22/21 00:19) vc1 Condition: Stable(11/22/21 00:19) vc1 Problem: new(11/22/21 00:19) vc1 Symptoms: have improved(11/22/21 00:19) vc1 Bed/Room Type: Standard(11/22/21 00:19) vc1 Room Assignment: 225(11/22/21 00:19) vc1 Diagnosis - Nondisplaced trimalleolar fracture of right lower leg, initial encounter for closed vc1 fracture - Muscle weakness (generalized) vc1 Forms: - Medication Reconciliation Form vc1 - SBAR form vc1 Signatures: Dispatcher [employer] EDMS Theresa Miller MD MD ma2 Jossy Gardner Lynsay, RN RN ll1 Temi Moreno RN RN vc1 Jil Nelson PA PA sb3 Kasia Chin RN RN ag7 Corrections: (The following items were deleted from the chart) 17:20 17:00 Social history: Smoking status: Patient denies any tobacco usage or history of. ll1 ll1 18:41 16:58 Accucheck ordered. ma2 ll1 21:34 18:46 ma2 vc1 23:19 18:46 Inpatient Admission ma2 ag7 23:19 18:46 Theresa Rodriguez ma2 ag7 23:19 18:46 Telemetry/MedSurg (Inpatient) ma2 ag7 23:19 18:46 Stable ma2 ag7 23:19 18:46 new ma2 ag7 23:19 18:46 are unchanged ma2 ag7 23:19 18:46 Standard ma2 ag7 23:19 18:46 Nondisplaced trimalleolar fracture of right lower leg, sequela ma2 ag7 23:19 18:46 Weakness ma2 ag7 23:19 21:34 212 vc1 ag7 11/22 00:20 00:19 Nondisplaced trimalleolar fracture of unspecified lower leg, initial encounter vc1 for open fracture type I or II - Trimalleolar fracture of right ankle, weakness vc1
[2021-11-21 18:58] LABS: Urine Bacteria <20 /HPF (<20); Urine RBC <5 /HPF (NONE SEEN)
[2021-11-21 19:37] LABS: Thyroid Stimulating Hormone 6.86 uIU/mL (0.360-3.740)
[2021-11-21] MEDS ORDERED: HYDROMORPHONE HCL 2 MG/ML inj ONE (20:30)
[2021-11-21 21:28] LABS: SARS-COV-2 RT PCR NEGATIVE (NEGATIVE)
--- NOTE | 2021-11-21 22:02 | P.HP ---
Certification for Inpatient Patient admitted to: Inpatient With expected LOS: <2 Midnights Patient will require the following post-hospital care: None Practitioner: I am a practitioner with admitting privileges, knowledge of patient current condition, hospital course, and medical plan of care. Services: Services provided to patient in accordance with Admission requirements found in Title 42 Section 412.3 of the Code of Federal Regulations <Jil Nelson - Last Filed: 11/21/21 22:03> Patient History Date of Service: 11/21/21 Primary Care Provider: Klarissa Reason for admission: TriMal Fx, Weakness History of Present Illness: Patient is a 76-year-old female with A. fib on Eliquis, CHF, hyper tension, COPD, hypothyroidism who came in today with complaints of a fall. She states she has been experiencing some generalized weakness for a few weeks now. She had a fall about a week ago and fell on her tailbone. Today she states she was walking and started feeling extremely weak, fell to the ground on the back of her head, and twisted her right ankle. She denies loss of consciousness. In the ED, right ankle x-ray showed trimalleolar fracture without significant displacement. CT head negative for acute findings. Dr. Joseph has agreed to consult on patient. Labs significant for TSH of 6.8 and free T4 1.93. Patient and daughter are mainly concerned about her weakness and falls. Will admit patient for further evaluation and management. Home medications list reviewed: Yes - Past Medical/Surgical History Diabetic: No -: HTN -: CHF -: Hypothyroidism -: Afib -: COPD -: cholecystectomy -: Hernia repair -: broken L ankle Psychosocial/ Personal History: Patient lives at home with her daughter and . - Family History Sister -: Cancer Mother -: Lung disease Notes: asthma Sister 2 Notes: [employer] Sister 3 -: Hypertension - Social History Smoking Status: Former smoker Alcohol use: Yes CD- Drugs: No Caffeine use: Yes Place of Residence: Home <OmarJil - Last Filed: 11/21/21 22:03> Date of Service: 11/21/21 <Theresa Rodriguez - Last Filed: 11/22/21 20:31> Allergies prednisone Allergy (Verified 11/22/21 00:20) flushed/red Home Medications: Valsartan [Diovan*] 160 mg PO BID #60 tab 01/10/17 Amiodarone HCl [Cordarone*] 200 mg PO DAILY 11/18/17 Amlodipine [Norvasc] 2.5 mg PO DAILY 11/18/17 Amoxicillin/Potassium Clav [Amox-Clav 875-125 mg Tablet] 1 each PO BID 11/18/17 Apixaban [Eliquis *] 2.5 mg PO BID 11/18/17 Furosemide [Lasix*] 40 mg PO DAILY 11/18/17 Levothyroxine [Synthroid] 25 mcg PO [id number] 11/18/17 carvediloL [Coreg*] 12.5 mg PO BID 11/18/17 Review of Systems General: Weakness Musculoskeletal: Back Pain, Leg Pain <Jil Nelson - Last Filed: 11/21/21 22:03> Physical Examination - Physical Exam General: Alert, In no apparent distress, Oriented x3 HEENT: Atraumatic, PERRLA, Mucous membr. moist/pink, EOMI, Sclerae nonicteric Neck: Supple, 2+ carotid pulse no bruit, No LAD, Without JVD or thyroid abnormality Respiratory: Clear to auscultation bilaterally, Normal air movement Cardiovascular: Regular rate/rhythm, Normal S1 S2 Gastrointestinal: Normal bowel sounds, No tenderness Musculoskeletal: Cast in place Integumentary: No rashes Neurological: Normal speech, Normal tone, Sensation intact, Normal affect - Studies Laboratory Data (last 24 hrs) 11/21/21 17:25: PT 12.4, INR 1.12, APTT 34.1 11/21/21 17:25: Sodium 138, Potassium 3.6, BUN 18, Creatinine 0.91, Glucose 107 H, Total Bilirubin 0.5, AST 15, ALT 22, Alkaline Phosphatase 76 11/21/21 17:25: WBC 8.0 D, Hgb 11.7 L, Hct 33.9 L D, Plt Count 237 <Jil Nelson - Last Filed: 11/21/21 22:03> Assessment and Plan - Problems (Diagnosis) (1) Trimalleolar fracture of right ankle Current Visit: Yes Status: Acute Qualifiers: Encounter type: initial encounter Fracture type: closed Qualified Code(s): S82.851A - Displaced trimalleolar fracture of right lower leg, initial encounter for closed fracture (2) Hypothyroidism Current Visit: Yes Status: Chronic Qualifiers: Hypothyroidism type: acquired Qualified Code(s): E03.9 - Hypothyroidism, unspecified (3) Chronic a-fib Current Visit: No Status: Chronic (4) COPD (chronic obstructive pulmonary disease) Current Visit: No Status: Chronic Qualifiers: COPD type: unspecified COPD Qualified Code(s): J44.9 - Chronic obstructive pulmonary disease, unspecified (5) Hypertension Current Visit: Yes Status: Chronic Qualifiers: Hypertension type: primary hypertension Qualified Code(s): I10 - Essential (primary) hypertension (6) Weakness Current Visit: Yes Status: Acute (7) Recurrent falls Current Visit: Yes Status: Acute - Plan -Dr. Joseph consulting on patient. N.p.o. at midnight. IV pain management and fluids -Patient and daughter are mainly concerned about patient's weakness and recurrent falls. Head CT negative. Consider MRI and neurology consult -TSH was elevated at 6.86. Patient states that her thyroid medication was recen tly adjusted about 2 months ago -Continue other home medications -hold Eliquis until after surgery or Dr. Joseph [facility] Discharge Plan: Home Plan to discharge in: 48 Hours - Advance Directives Does patient have a Living Will: No Does patient have a Durable POA for Healthcare: No - Code Status/Comfort Care Code Status Assessed: Yes (Full) Critical Care: No Time Spent Managing Pts Care (In Minutes): 50 <Jil Nelson - Last Filed: 11/21/21 22:03> Date of Service: 11/22/21 Subjective: HPI as mentioned above Physical Examination: Vitals: Afebrile vital signs are stable Physical exam: Cardiovascular: Within normal limits. Lungs: Within normal limits Abdomen: Within normal limits Neuro: Awake, alert, oriented to person place and time Assessment: 1. Trimalleolar fracture 2. Syncope Plan: 1. Continue with current plan of care as mentioned above <Theresa Rodriguez - Last Filed: 11/22/21 20:31>
[2021-11-21] MEDS ORDERED: ACETAMINOPHEN 500 MG TAB PO PRN (23:18)
[2021-11-21] MEDS ORDERED: HYDROMORPHONE HCL 1 MG/ML INJ IV PRN (23:18)
[2021-11-21] MEDS ORDERED: ONDANSETRON 4 MG/2 ML VIAL IV PRN (23:18)
[2021-11-21] MEDS: D5 0.45 NS 1,000 ML IV SCH (23:49)
[2021-11-21 23:59] VITALS: BMI 36.0
[2021-11-22] MEDS ORDERED: FENTANYL CITR 100 MCG/2 ML IV ONE (00:28)
[2021-11-22] MEDS: HYDROMORPHONE HCL 2 MG/ML inj IV PRN ×3 (05:04→20:28)
[2021-11-22] MEDS: D5 0.45 NS 1,000 ML IV SCH (13:40)
[2021-11-22] MEDS ORDERED: PNEUMOCOCCAL VACCINE 0.5 ML IMVAC ONE (15:00)
[2021-11-22] MEDS: APIXABAN 5 MG TABLET PO SCH (20:28)
--- NOTE | 2021-11-22 20:36 | P.PN ---
Subjective Date of Service: 11/22/21 Subjective: No new changes, No C/O voiced, Improving Patient states she is fallen over the last few weeks multiple times. Spoke with orthopedic and they do want to do any procedure until cardiac risk assessed. Plan to do outpatient surgery and discharged with a splint for outpatient follow-up. Review of Systems 10-point ROS is otherwise unremarkable Physical Examination - Vital Signs Temperature: 97.3 F Blood Pressure: 156/61 Pulse: 55 Respirations: 18 Pulse Ox (%): 95 - Physical Exam General: Alert, In no apparent distress, Oriented x3 HEENT: Atraumatic, PERRLA, EOMI Neck: Supple, JVD not distended Respiratory: Clear to auscultation bilaterally, Normal air movement Cardiovascular: Regular rate/rhythm, Normal S1 S2, No murmurs Gastrointestinal: Normal bowel sounds, Soft and benign, Non-distended, No tenderness Musculoskeletal: Tenderness Neurological: Normal speech, Sensation intact, Cranial nerves 3-12 intact, Abnormal strength - Studies Medications List Reviewed: Yes Assessment & Plan - Problems (Diagnosis) (1) Trimalleolar fracture of right ankle Current Visit: Yes Status: Acute Qualifiers: Encounter type: initial encounter Fracture type: closed Qualified Code(s): S82.851A - Displaced trimalleolar fracture of right lower leg, initial encounter for closed fracture (2) Syncope Current Visit: Yes Status: Acute (3) Recurrent falls Current Visit: Yes Status: Acute (4) Atrial fibrillation with rapid ventricular response Current Visit: No Status: Acute - Plan Plan: 1. Carotid Doppler 2. Echocardiogram 3. Cardiology consultation 4. MRI of the brain 5. Orthostatics & continue with telemetry 6. Orthopedic consultation appreciated-they want a follow-up with the patient as an outpatient over the next 2 to 3 weeks 7. Rate controlled and continue with cardiac medications 8. GI and DVT prophylaxis Discharge Plan: Home Plan to discharge in: Greater than 2 days - Advance Directives Does patient have a Living Will: No Does patient have a Durable POA for Healthcare: No - Code Status/Comfort Care Code Status Assessed: Yes Code Status: Full Code Critical Care: No Time Spent Managing PTS Care (In Minutes): 35
--- NOTE | 2021-11-22 21:30 | RAD REPORT ---
EXAM DESCRIPTION: US - CP - 11/22/2021 9:14 pm CLINICAL HISTORY: Syncope COMPARISON: Head C Spine Mpr Wo Con dated 11/21/2021 TECHNIQUE: Real-time sonographic evaluation of bilateral carotid and vertebral systems was performed . Frias scale and Doppler interrogation were performed with waveform tracing bilaterally. FINDINGS: Normal high resistance waveforms are noted in both external carotid arteries. The common c arotid arteries and internal carotid arteries show normal low resistance waveforms. Very significant calcified and noncalcified plaquing changes are present. Significant velocity elevat ions are seen in the midportion of the right internal carotid artery and left internal carotid artery . There is relative elevation of the right common carotid artery compared with the left. ICA/CCA rati os are both significantly elevated indicating greater than 80% stenoses. Vertebral arteries were not well visualized. Velocity values and ratios were recorded and are retained in the patient's imaging records. IMPRESSION: Significant bilateral carotid densely calcified plaquing changes. Bilateral greater than 80% carotid bulb and ICA regions stenoses are evident.
[2021-11-23] MEDS: D5 0.45 NS 1,000 ML IV SCH ×2 (01:13→16:49)
[2021-11-23] MEDS: HYDROMORPHONE HCL 2 MG/ML inj IV PRN ×2 (03:56→08:47)
[2021-11-23] MEDS ORDERED: PROMETHAZINE INJ 25 MG/ML AMP IV ONE (04:17)
[2021-11-23] MEDS ORDERED: FENTANYL CITR 100 MCG/2 ML IV ONE (04:17)
--- NOTE | 2021-11-23 04:25 | P.PN ---
Date of Service: 09/25/21 Received a call at 0400 that patient was complaining of her splint being too tight on RLE and of severe pain. Nursing staff had just moved the patient in bed. Went to assess patient and splint was appropriately wrapped. No swelling or erythema present. 2+ pedal pulses appreciated. Patient could move her toes and sensation intact. No concern for DVT or compartment syndrome at this time. Daughter seemed to think that she is just having increased pain which is making it feel like the splint is too tight. Patient was also feeling nauseated after being moved around. I will order one-time dose fentanyl and promethazine.
--- NOTE | 2021-11-23 08:46 | RAD REPORT ---
EXAM DESCRIPTION: MRI - Brain Wo Cont - 11/23/2021 8:05 am CLINICAL HISTORY: Syncope, fall with head trauma COMPARISON: Head C Spine Mpr Wo Con dated 11/21/2021 TECHNIQUE: Sagittal T1-weighted images were obtained along with axial PD, heavily T2-weighted and T2 -FLAIR images. Axial DWI and ADC mapping sequences were also obtained along with coronal heavily T2-w eighted images. FINDINGS: Diffusion-weighted imaging shows a cluster of punctate less than 5 mm sized areas of restr icted diffusion in the subcortical white matter left cerebral hemisphere at the frontal- parietal lob e junction. There is corresponding diminished signal on ADC mapping. No cortical edema or sulcal effa cement. No other areas of diffusion signal abnormality. Underlying atrophy changes are again noted. Baseline chronic ischemic change in the cerebral white ma tter is minimal. Ventricles do appear to be in proportion to the amount of volume loss. There is no e celeste or shift of midline structures. No extra-axial fluid collections. Frias-matter/white matter junct ion is preserved. Signal voids are seen as a normal finding in the major intracranial vessels. No globe or orbital content acute finding. No sella or supra sella mass. Mastoid air cells are clear. No acute paranasal sinus finding. A large posterior scalp hematoma is present approximately 6 cm in transverse diameter. The underlying bone is intact. No enlargement since the CT study is identifiable. IMPRESSION: Punctate foci of nonhemorrhagic subacute CVA in the left cerebral subcortical white sabrina er at the frontoparietal junction.
[2021-11-23] MEDS: APIXABAN 5 MG TABLET PO SCH (08:53)
--- NOTE | 2021-11-23 14:27 | P.PN ---
Subjective Date of Service: 11/23/21 Primary Care Provider: Klarissa Chief Complaint: TriMal Fx, Weakness Subjective: No new changes Physical Examination - Vital Signs Temperature: 98.2 F Blood Pressure: 143/66 Pulse: 60 Respirations: 16 Pulse Ox (%): 96 - Studies Medications List Reviewed: Yes Assessment And Plan Physician Review: Patient Assessed, Agree with Above Assessment and Plan Physician Review Additional Text: IMPRESSION: Significant bilateral carotid densely calcified plaquing changes. Bilateral greater than 80% carotid bulb and ICA regions stenoses are evident. MRI brain Underlying atrophy changes are again noted. Baseline chronic ischemic change in the cerebral white matter is minimal. Ventricles do appear to be in proportion to the amount of volume loss. There is no edema or shift of midline structures. No extra-axial fluid collections. Frias-matter/white matter junction is preserved. Signal voids are seen as a normal finding in the major intracranial vessels. No globe or orbital content acute finding. No sella or supra sella mass. Mastoid air cells are clear. No acute paranasal sinus finding. A large posterior scalp hematoma is present approximately 6 cm in transverse diameter. The underlying bone is intact. No enlargement since the CT study is identifiable. IMPRESSION: Punctate foci of nonhemorrhagic subacute CVA in the left cerebral subcortical white matter at the frontoparietal junction. General: Alert, In no apparent distress, Oriented x3 HEENT: Atraumatic, PERRLA, EOMI Neck: Supple, JVD not distended Respiratory: Clear to auscultation bilaterally, Normal air movement Cardiovascular: Regular rate/rhythm, Normal S1 S2, No murmurs Gastrointestinal: Normal bowel sounds, Soft and benign, Non-distended, No tenderness Musculoskeletal: Tenderness Neurological: Normal speech, Sensation intact, Cranial nerves 3-12 intact, Abnormal strength - Studies Medications List Reviewed: Yes Assessment & Plan - Problems (Diagnosis) New onset CVA Bilateral carotid artery stenosis (1) Trimalleolar fracture of right ankle Current Visit: Yes Status: Acute Qualifiers: Encounter type: initial encounter Fracture type: closed Qualified Code(s): S82.851A - Displaced trimalleolar fracture of right lower leg, initial encounter for closed fracture (2) Syncope Current Visit: Yes Status: Acute (3) Recurrent falls Current Visit: Yes Status: Acute (4) Atrial fibrillation with rapid ventricular response Current Visit: No Status: Acute - Plan Plan: New onset cva noted, will obtain echo Will also obtain neurology consult Start PT and OT eval, may need acute Rehab Presents of bilateral carotid artery stenosis noted, may need vascular intervention, we discussed with neurology regarding transfer for intervention or conservative monitoring Continue pain control Cardiology evaluation for need for continue Eliquis Follow orthopedic consultation, plan for outpatient follow-up in 2 to 3 weeks, continue splint -Continue patient on Eliquis previously taking for A. fib continue with telemetry -c/w GI and DVT prophylaxis Discharge Plan: Home Plan to discharge in: Greater than 2 days 11/23/21 14:28
[2021-11-23] MEDS ORDERED: ALBUTEROL 2.5 MG/3 ML NEB SOL NEB PRN (17:08)
[2021-11-23 17:26] VITALS: TEMP 99.4
--- NOTE | 2021-11-23 20:31 | RAD REPORT ---
EXAM DESCRIPTION: CT - Ct Stroke Brain Wo Cont - 11/23/2021 8:20 pm CLINICAL HISTORY: MENTAL CHANGE COMPARISON: Head Brain Wo Cont dated 11/17/2021 TECHNIQUE: All CT scans are performed using dose optimization technique as appropriate and may inclu de automated exposure control or mA/KV adjustment according to patient size. FINDINGS: No intracranial hemorrhage, hydrocephalus or extra-axial fluid collection.No areas of brai n edema or evidence of midline shift. Arch hematoma overlying the vertex of the skull. Cerebral atrop hy. Mild chronic small vessel ischemic changes. The paranasal sinuses and mastoids are clear. The calvarium is intact. IMPRESSION: No acute intracranial abnormality. Scalp hematoma but no underlying skull fracture. Results called to the 2nd floor nurse S Calixt[place] by Dr. Tsai at 2027 on 11/23/21
--- NOTE | 2021-11-23 21:31 | RAD REPORT ---
EXAM DESCRIPTION: CT - Neck Angio - 11/23/2021 9:21 pm CLINICAL HISTORY: Neuro changes COMPARISON: Head C Spine Mpr Wo Con dated 11/21/2021; Head angio dated 11/23/2021; Carotid Artery Bila teral dated 11/22/2021 TECHNIQUE: CT angiography of the neck vessels was performed with MIPs. All CT scans are performed using dose optimization technique as appropriate and may include automated exposure control or mA/KV adjustment according to patient size. FINDINGS: The aortic arch was not included in the field of view. There is probably a stenosis at the right proximal subclavian artery though this is not well visualized. The proximal common carotid arteries were not included in the field of view. Severe stenoses are pres ent at both carotid bifurcations involving the proximal ICAs secondary to predominantly calcified beck que. Normal flow is seen within both vertebral arteries. IMPRESSION: Severe stenoses involving both proximal ICAs which corresponds with the carotid ultrasou nd from 11/22/2021. The vertebral arteries are patent.
[2021-11-23 21:32] VITALS: O2SAT 95
--- NOTE | 2021-11-23 21:40 | RAD REPORT ---
EXAM DESCRIPTION: CT - Head angio - 11/23/2021 9:21 pm CLINICAL HISTORY: Neuro changes COMPARISON: Ct Stroke Brain Wo Cont dated 11/23/2021; Head Brain Wo Cont dated 11/17/2021 TECHNIQUE: CT angiography of the head was performed with MIPs. All CT scans are performed using dose optimization technique as appropriate and may include automated exposure control or mA/KV adjustment according to patient size. FINDINGS: Suboptimal contrast opacification of the intracranial vessels. Anterior circulation: Calcifications involving the bilateral cavernous carotids. No aneurysm or large vessel occlusion. No definite hemodynamically significant stenosis. No arteriovenous malformation identified. Posterior circulation: No aneurysm or large vessel occlusion. Question moderate focal stenosis of the right P1 segment of th e posterior cerebral artery. No arteriovenous malformation identified. IMPRESSION: The exam is limited due to suboptimal contrast opacification of the intracranial vessels . No large vessel occlusion involving the anterior or posterior circulation. Question moderate focal st enosis of the right P1 segment of the posterior cerebral artery . Intracranial atherosclerotic plaque is noted.
--- NOTE | 2021-11-23 22:40 | P.DS ---
Admission Date: 11/21/21 Discharge Date: 11/23/21 Primary Care Provider: Klarissa Disposition: TRANSFER TO [facility] Discharge Condition: SERIOUS Reason for Admission: TriMal Fx, Weakness Consultations: Neurology, Othro Procedures: CTA neck 11/23/2021 FINDINGS: The aortic arch was not included in the field of view. There is probably a stenosis at the right proximal subclavian artery though this is not well visualized. The proximal common carotid arteries were not included in the field of view. Severe stenoses are present at both carotid bifurcations involving the proximal ICAs secondary to predominantly calcified plaque. Normal flow is seen within both vertebral arteries. IMPRESSION: Severe stenoses involving both proximal ICAs which corresponds with the carotid ultrasound from 11/22/2021. The vertebral arteries are patent. CTA head FINDINGS: Suboptimal contrast opacification of the intracranial vessels. Anterior circulation: Calcifications involving the bilateral cavernous carotids. No aneurysm or large vessel occlusion. No definite hemodynamically significant stenosis. No arteriovenous malformation identified. Posterior circulation: No aneurysm or large vessel occlusion. Question moderate focal stenosis of the right P1 segment of the posterior cerebral artery. No arteriovenous malformation identified. IMPRESSION: The exam is limited due to suboptimal contrast opacification of the intracranial vessels. No large vessel occlusion involving the anterior or posterior circulation. Question moderate focal stenosis of the right P1 segment of the posterior cerebral artery . Intracranial atherosclerotic plaque is noted. CT head without contrast 11/23/2021 FINDINGS: No intracranial hemorrhage, hydrocephalus or extra-axial fluid collection.No areas of brain edema or evidence of midline shift. Arch hematoma overlying the vertex of the skull. Cerebral atrophy. Mild chronic small vessel ischemic changes. The paranasal sinuses and mastoids are clear. The calvarium is intact. IMPRESSION: No acute intracranial abnormality. Scalp hematoma but no underlying skull fracture. MRI brain without contrast 11/24/2019 FINDINGS: Diffusion-weighted imaging shows a cluster of punctate less than 5 mm sized areas of restricted diffusion in the subcortical white matter left cerebral hemisphere at the frontal- parietal lobe junction. There is corresponding diminished signal on ADC mapping. No cortical edema or sulcal effacement. No other areas of diffusion signal abnormality. Underlying atrophy changes are again noted. Baseline chronic ischemic change in the cerebral white matter is minimal. Ventricles do appear to be in proportion to the amount of volume loss. There is no edema or shift of midline structures. No extra-axial fluid collections. Frias-matter/white matter junction is preserved. Signal voids are seen as a normal finding in the major intracranial vessels. No globe or orbital content acute finding. No sella or supra sella mass. Mastoid air cells are clear. No acute paranasal sinus finding. A large posterior scalp hematoma is present approximately 6 cm in transverse diameter. The underlying bone is intact. No enlargement since the CT study is id entifiable. IMPRESSION: Punctate foci of nonhemorrhagic subacute CVA in the left cerebral subcortical white matter at the frontoparietal junction. Carotid Doppler 11/22/2021 FINDINGS: Normal high resistance waveforms are noted in both external carotid arteries. The common carotid arteries and internal carotid arteries show normal low resistance waveforms. Very significant calcified and noncalcified plaquing changes are present. Significant velocity elevations are seen in the midportion of the right internal carotid artery and left internal carotid artery. There is relative elevation of the right common carotid artery compared with the left. ICA/CCA ratios are both significantly elevated indicating greater than 80% stenoses. Vertebral arteries were not well visualized. Velocity values and ratios were recorded and are retained in the patient's imaging records. IMPRESSION: Significant bilateral carotid densely calcified plaquing changes. Bilateral greater than 80% carotid bulb and ICA regions stenoses are evident. Ankle x-rayright 11/21/2021 FINDINGS: Trimalleolar fracture of the ankle is present without significant displacement. Moderate soft tissue swelling is noted. Moderate calcaneal spurs. CT head C-spine 11/21/2021 No acute hemorrhage, hydrocephalus or extra-axial collection is identified.Moderate generalized brain atrophy.No areas of brain edema or midline shift. The paranasal sinuses and mastoids are clear.The calvarium is intact. Large posterior scalp hematoma. CT CERVICAL SPINE WITHOUT CONTRAST: No fracture or subluxation.Moderate cervical degenerative changes.No prevertebral soft tissues swelling is identified. Aberrant right subclavian artery, normal variant. IMPRESSION: No acute intracranial or cervical spine findings. Chest x-ray 11/21/2021 Mild pulmonary edema. The heart is moderately enlarged. No displaced fractures.Aortic atherosclerosis. IMPRESSION: Mild CHF. Brief History of Present Illness: Patient was admitted on the after sustaining a fall/syncopal episode with right trimalleolar ankle fracture for evaluation of fall/syncope and orthopedic evaluation for the trimalleolar ankle fracture. Hospital Course: Code stroke was called at 1999, went to examine the patient she is having new onset aphasia and right-sided deficits. Daughter was called on phone who was at patient's bedside prior to her taking a nap, patient was last seen normal at 1830 awoke from a nap at 1999 with this aphasia and right-sided deficits. Glucose was obtained which was within normal limits, patient was immediately transferred down for CT head brain without contrast which was negative. Case was discussed with neurology, patient last took her Eliquis approximately 24 hours prior and therefore is not a candidate for TNKase or tPA given that it would need to be at least 48 hours since last dose of Eliquis. Her review of images demonstrated the 80% carotid stenosis bilaterally, emergent transfer to [facility] was initiated at that time, after discussion with neurology departments CTA head and neck was ordered which redemonstrated similar findings from carotid Doppler with severe stenosis bilateral internal carotid arteries but the CTA head was negative for any large vessel occlusion. Patient was transferred to [facility] for higher level of care, acute ischemic CVA with severe carotid stenosis bilaterally. At time of my initial evaluations patient's NIH score was around 9-10, she was improving significantly over the course of the next 2 hours, currently patient is at score is now to around a 4. Patient's family at bedside, patient transferred by [facility] given acute ischemic symptoms with the severe stenosis. Patient was accepted to [facility] stroke unit. Vital Signs/Physical Exam: Temp Pulse Resp BP Pulse Ox 99.4 F 62 20 126/56 L 97 11/23/21 16:00 11/23/21 16:00 11/23/21 16:00 11/23/21 16:00 11/23/21 16:00 General: Alert, Oriented x2 HEENT: Atraumatic Neck: Supple Respiratory: Clear to auscultation bilaterally, Normal air movement Cardiovascular: No edema Capillary refill: <2 Seconds Gastrointestinal: Normal bowel sounds, Soft and benign Musculoskeletal: No erythema Integumentary: No rashes Neurological: Other (Right upper extremity drift, mild aphasia, difficulty following commandssymptoms improving) Laboratory Data at Discharge: WBC 8.0 K/uL (4.3-10.9) D 11/21/21 17:25 Hgb 11.7 g/dL (12.0-15.0) L 11/21/21 17:25 Hct 33.9 % (36.0-45.0) L D 11/21/21 17:25 Plt Count 237 K/uL (152-406) 11/21/21 17:25 PT 12.4 SECONDS (9.5-12.5) 11/21/21 17:25 INR 1.12 11/21/21 17:25 APTT 34.1 SECONDS (24.3-36.9) 11/21/21 17:25 Sodium 138 mmol/L (136-145) 11/21/21 17:25 Potassium 3.6 mmol/L (3.5-5.1) 11/21/21 17:25 BUN 18 mg/dL (7-18) 11/21/21 17:25 Creatinine 0.91 mg/dL (0.55-1.3) 11/21/21 17:25 Glucose 107 mg/dL (74-106) H 11/21/21 17:25 Total Bilirubin 0.5 mg/dL (0.2-1.0) 11/21/21 17:25 AST 15 U/L (15-37) 11/21/21 17:25 ALT 22 U/L (12-78) 11/21/21 17:25 Alkaline Phosphatase 76 U/L (45-117) 11/21/21 17:25 Home Medications: Amiodarone HCl [Cordarone*] 200 mg PO DAILY 11/18/17 Amlodipine [Norvasc] 10 mg PO DAILY 11/18/17 Apixaban [Eliquis *] 2.5 mg PO BID 11/18/17 Furosemide [Lasix*] 40 mg PO DAILY 11/18/17 carvediloL [Coreg*] 12.5 mg PO BID 11/18/17 Atorvastatin Calcium [Lipitor*] 20 mg PO DAILY 11/22/21 Hydralazine [Apresoline*] 10 mg PO TID 11/22/21 Irbesartan 300 mg PO DAILY 11/22/21 Levothyroxine Sodium [Euthyrox] 137 mcg PO DAILY 11/22/21 Physician Discharge Instructions: Continue with plan of care at [facility] Followup: Unknown,U [Primary Care Provider] - Time spent managing pt's care (in minutes): 90
--- NOTE | 2021-11-23 22:45 | CON ---
Date of Consultation: 11/23/2021 Reason For Consultation: Syncope. History Of Present Illness: Ms. Hernandez is a 76-year-old woman with history of hypertension, paroxysma l atrial fibrillation, hypothyroidism, chronic diastolic congestive heart failure, dyslipidemia and C OPD. She came in with losing balance and presyncope. She fell down and broke her ankle. Part of he r workup revealed an 80% bilateral internal carotid artery stenosis and I was consulted. The patient denied any cardiac symptoms. No rashes. Allergies: SHE IS ALLERGIC TO PREDNISONE. Review of Systems: Negative. Social History: Negative. Family History: Noncontributory. Medications: At home include Synthroid, Coreg, amiodarone, Eliquis, Norvasc, Lipitor, Lasix, hydrala zine, and irbesartan. Physical Examination: Vital Signs: Stable, afebrile, sinus rhythm. HEENT: Negative. Neck: Supple with bilateral carotid bruit. Chest: Clear. Cardiac: Regular rhythm and rate with an S4 gallop. No murmurs or rubs. Abdomen: Benign. Extremities: Revealed no clubbing, cyanosis, or edema. Pulses were present distally bilaterally. Neurological: She was nonfocal. Skin: Dry and intact. Diagnostic Data: Chest x-ray showed mild CHF. Carotid Doppler showed 80% bilateral carotid stenosis , internal. Rest of it was within normal limits. Impression And Plan: 1.Presyncope and loss of balance, status post fall with ankle fracture with bilateral carotid artery stenosis. I think Ms. Hernandez needs a carotid angiogram. We will hold Eliquis for 48 hours. I will do the carotid angiogram on . Case was discussed with the patient and family. 2.Hypertension, which is stable. 3.Atrial fibrillation, stable on amiodarone. She is in sinus rhythm. We will resume the Eliquis la ter. 4.Hypothyroidism, stable. 5.Chronic diastolic congestive heart failure with mild acute exacerbation. She has diuresed well. 6.Her other problems include dyslipidemia and chronic obstructive pulmonary disease, both of those a re stable and she is on the right medication. I will continue to follow her along. JAGJIT/MATT Voice ID: [id number] Report ID: [id number]
[2021-11-23 23:00] VITALS: BP 153/54
--- NOTE | 2021-11-24 10:32 | ECHO ---
HEIGHT: 5 ft 4 in WEIGHT: 210 lb 0 oz DATE OF STUDY: 11/23/[address]: Theresa Rodriguez MD 2-DIMENSIONAL: YES M.MODE: YES DOPPLER: YES COLOR FLOW: YES TDS: NO PORTABLE: YES DEFINITY: NO BUBBLE STUDY: NO DIAGNOSIS: SYNCOPE CARDIAC HISTORY: CATHERIZATION: SURGERY: PROSTHETIC VALVE: PACEMAKER: MEASUREMENTS (cm) DIASTOLIC (NORMALS) SYSTOLIC (NORMALS) IVSd 1.1 (0.6-1.2) LA Diam 4.2 (1.9-4.0) LVEF 67% LVIDd 4.1 (3.5-5.7) LVIDs 2.6 (2.0-3.5) %FS 36% LVPWd 1.2 (0.6-1.2) Ao Diam 2.6 (2.0-3.7) 2 DIMENSIONAL ASSESSMENT: RIGHT ATRIUM: NORMAL LEFT ATRIUM: NORMAL RIGHT VENTRICLE: NORMAL LEFT VENTRICLE: NORMAL TRICUSPID VALVE: NORMAL MITRAL VALVE: NORMAL PULMONIC VALVE: NORMAL AORTIC VALVE: NORMAL PERICARDIAL EFFUSION: NONE AORTIC ROOT: NORMAL LEFT VENTRICULAR WALL MOTION: NORMAL DOPPLER/COLOR FLOW: NORMAL COMMENTS: NORMAL 2D ECHOCARDIOGRAM WITH DOPPLER. NO WALL ABNORMALITY. NO EFFUSION. TECHNOLOGIST: Urszula GRIMM
== END 2021-11-23 22:18 | disposition short-term general hospital (02) | DRG 562 ==
LOC: ER 16:54 → ERHOLD 19:58 → 2ND 23:20 → 3RD-ICU 11-23 21:20
PROVIDERS: ADMIT Hospitalist; ATTEND Hospitalist
DX: S82.851A Displaced trimalleolar fracture of right lower leg, initial encounter for closed fracture (principal); I63.9 Cerebral infarction, unspecified; I50.33 Acute on chronic diastolic (congestive) heart failure; I48.20 Chronic atrial fibrillation, unspecified; R47.01 Aphasia; G81.91 Hemiplegia, unspecified affecting right dominant side; X50.1XXA Overexertion from prolonged static or awkward postures, initial encounter; Y92.009 Unspecified place in unspecified non-institutional (private) residence as the place of occurrence of the external cause; E03.9 Hypothyroidism, unspecified; J44.9 Chronic obstructive pulmonary disease, unspecified; R53.1 Weakness; Z91.81 History of falling; R55 Syncope and collapse; I65.23 Occlusion and stenosis of bilateral carotid arteries; I11.0 Hypertensive heart disease with heart failure; R29.709 NIHSS score 9; Z23 Encounter for immunization; Z20.822 Contact with and (suspected) exposure to COVID-19
CPT/HCPCS: 0240U; 36415; 51702; 70450; 70496; 70498; 70551; 71045; 72125; 80053; 81003; 81015; 82947; 83605; 84439; 84443; 85025; 85610; 85730; 87040; 90471; 90732; 93005; 93306; 93880; 94640; 99285; J1170; J2405; J2550; J3010; J7030; J7799; Q9967